=== PATIENT | female | born 1990 | race Caucasian/White ===

== ENCOUNTER → 2018-07-31 12:54 | Outpatient (CLI) | payer OTHER, SELFPAY | PROVIDERS: Family Provider Physician Assistant Medical; PCP Physician Assistant Medical | DX: Z23 Encounter for immunization (principal) | CPT/HCPCS: 90471; 90686 ==

== ENCOUNTER → 2019-08-18 13:23 | Outpatient (CLI) | payer OTHER, SELFPAY | PROVIDERS: PCP Physician Assistant Medical | DX: Z23 Encounter for immunization (principal) | CPT/HCPCS: 90471; 90686 ==

== ENCOUNTER → 2019-12-03 14:48 | Outpatient (CLI) | payer OTHER, SELFPAY ==
--- NOTE | 2019-12-03 14:51 | DI.RAD.S_ITS ---
PROCEDURE: XR LUMBAR SPINE MIN 4V INDICATIONS: lower back pain TECHNIQUE: 5 views of the lumbar spine were acquired. COMPARISON: [facility], , CHEST 2 VIEW, 07/13/2012, 19:30. FINDINGS: Bones: There is transitional anatomy. A comparison chest x-ray demonstrates 11 pairs of ribs. The most superior [id number] lumbar vertebra is referred roderick transitional L1. There is normal bony alignment. No vertebral body compression fractures. There is limbus vertebra at L4. No suspicious bony lesions. Soft tissues: Overlying bowel gas pattern is normal. No suspicious soft tissue calcifications. Oblique images: No pars defects. IMPRESSION: 1. Please note transitional anatomy. 2. No acute osseous abnormalities. Dictated by: Valentina Tyler M.D. on 12/03/2019 at 16:27 Approved by: Valentina Tyler M.D. on 12/03/2019 at 16:31
--- NOTE | 2019-12-03 14:51 | DI.RAD.S_ITS ---
PROCEDURE: XR SACRUM COCCYX MIN 2V INDICATIONS: lower back pain TECHNIQUE: 3 views of the sacrum and coccyx acquired. COMPARISON: None. FINDINGS: Bones: No fractures or dislocations. No suspicious bony lesions. Soft tissues: Visualized bowel gas pattern is normal. No suspicious soft tissue densities. Calcific densities in pelvis are most likely phleboliths. IMPRESSION: No acute osseous abnormalities. Dictated by: Valentina Tyler M.D. on 12/03/2019 at 16:55 Approved by: Valentina Tyler M.D. on 12/03/2019 at 16:56
== END ==
PROVIDERS: PCP Physician Assistant Medical; Visit Provider Physician Assistant
DX: M54.5 Low back pain (principal)
CPT/HCPCS: 72110; 72220

== ENCOUNTER 2019-12-07 14:59 | Outpatient (RCR) | payer OTHER, SELFPAY ==
--- NOTE | 2019-12-07 16:00 | PT.OPPOC ---
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) Low back pain (12/07/19) Visit Care Team Role Provider Type Heather Wiley PA-C Primary Care Provider Non-Staff Specialty: Medical Address: [address] [place] [address] [address], [place], [address] Email: Lisa Cuellar PA-C Attending Provider Advanced Industrial Retrofit Designer Specialty: Medical Address: [address] [place] [address], [id number] Email: [email or web address] Plan Of Care PT-OP-T Assessment and Plan Start: 12/07/19 17:45 Freq: Status: Active Protocol: Document 12/07/19 15:15 DCW (Rec: 12/08/19 11:50 DCW [id number]) Physical Therapy Assessment Rehab Potential Rehabilitation Potential Excellent Evaluation Complexity Number of Personal Factors/Comorbidities 1-2 Number of Body Systems Impaired 3 Clinical Presentation at Evaluation Stable Impairments Impairments Functional Mobility,Pain,ROM, Soft Tissue Mobility,Tone Goals Three Impairment Severe tone through bilateral psoas muscles Property Technician Goal (LTG) Pt to demonstrate mild tone and tenderness to palpation 1/ 4: Complaint of pain along bilateral psoas muscles LTG Duration 02/05/20 Two Impairment Pt limited with functional activities including doing dishes and laundry Correction Goal (LTG) Pt to tolerate standing at sink without the need to bend over to limit pain for the entire required time period. LTG Duration 02/05/20 One Impairment Pt does not have an appropriate home exercise program Short Term Goal (STG) Pt to be independent and compliant with an appropriate HEP STG Duration 01/07/20 Assessment Summary Assessment Pt presents with low back and anterior hip pain. Pt's complaints and physical examination indicate that her hip musculature, specifically her psoas muscles bilaterally, are hypertonic and pulling on their origin point at her lumbar spine, resulting in an anterior tilt of her pelvis and increased lordosis, in a fairly common lower cross syndrome pattern. Pt should benefit from skilled therapy focusing on improving flexibility of her hip flexors and lumbar paraspinals, as well as strengthening of her TrA and hip extensors. Pt is motivated to work on an HEP, and will hopefully get to the point fairly early on where she is independent and can perform her necessary TherEx independently at home. 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 This is unlikely to be causing her current complaints, however may require further work-up if her symptoms do not resolve as expected. Physical Therapy Plan Frequency and Duration Frequency of Treatment 1x/Week Duration of Treatment 2 months Plan of Care Start Date 12/07/19 Plan of Care End Date 02/05/20 Therapeutic Interventions Therapeutic Interventions Aquatic Therapy,Home Exercise Program,Joint Mobilizations, Manual Therapy,Patient/ Caregiver Education,Self-Care/ Home Management,Soft Tissue Mobilization,Therapeutic Activities,Therapeutic Exercises Modalities Cold Pack/Ice Massage,Electric Stimulation,Hot Packs, Ultrasound Next Visit Focus/Plan Next Note Type Treatment Note Next Visit Plan STM to psoas, piriformis, QL, and Paraspinals, Flexibility/ ROM training, strengthening Plan of Care Dates Plan of Care Start Date 12/07/19 Plan of Care End Date 02/05/20 Electronically Signed by: Rajeev Kim, PT 12/08/19 [id number] Please Sign and Return: I have reviewed this Plan of Care and certify that the skilled therapy services above are required to meet the patient?s needs. Physician Signature Date Printed Name and Credentials Clinical Instructor Signature Printed Name and Credentials
--- NOTE | 2019-12-07 16:00 | PT.OIE ---
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) Low back pain (12/07/19) Visit Care Team Role Provider Type Heather Wiley PA-C Primary Care Provider Non-Staff Specialty: Medical Address: [address] [place], [place] [address], [place], [address] Email: Lisa Cuellar PA-C Attending Provider Advanced Robotics Software Engineer Specialty: Medical Address: [address] [place] [address], [id number] Email: [email or web address] Physical Therapy Initial Evaluation PT-OP-A Visit Information Start: 12/07/19 17:45 Freq: Status: Active Protocol: Document 12/07/19 15:15 DCW (Rec: 12/07/19 17:57 DCW [id number]) Out-Patient Physical Therapy Visit Information Visit Information Visit Type Initial Evaluation Visit Start Time 15:15 Visit Stop Time 15:55 Total Visit Minutes 40 Visit Number 1 Number of ENVIRONMENTAL CONTROL ADMINISTRATOR Visits 0 Evaluation Information Evaluation Date 12/07/19 PT-OP-B Current Condition Start: 12/07/19 17:45 Freq: Status: Active Protocol: Document 12/07/19 15:15 DCW (Rec: 12/07/19 17:57 DCW [id number]) Current Condition History of Current Condition Onset Date 1 week Current Complaints low back and anterior hip pain History of Current Condition Pt is a 29 year old female presenting with a multi-year history of low back pain off and on with varying severity. Pt notes she doesn't know when or why it began, but she's just been dealing with it for a few years. Pt notes, however , that last week, her back pain got so bad, she had to go to urgent care. Pt reports that it typically does not last this long, and her pain goes from an average of 5/10 to a high of 8/10, worsening when standing straight up or lying flat on her back with her legs straight. Pt notes that when she is standing, she feels like she needs to lean on something to relieve pressure. Prior Treatments and Tests Lumbar x-ray: There is transitional anatomy. A comparison chest x-ray demonstrates 11 pairs of ribs. The most superior non-rib- bearing lumbar vertebra is referred roderick transitional L1. ..IMPRESSION: 1. Please note transitional anatomy. 2. No acute osseous abnormalities Per: Valentina Tyler M.D. on 2019 Sacral x-ray: IMPRESSION: No acute osseous abnormalities. Per: Valentina Tyler M.D. on 2019 PT-OP-C Subjective Start: 12/07/19 17:45 Freq: Status: Active Protocol: Document 12/07/19 15:15 DCW (Rec: 12/07/19 17:57 DCW [id number]) OP-PT Subjective Patient Comments Patient Comments Pt notes she works through the pain, I'm not going to let this back pain stop me. Pt does note that she has had her boyfriend help more with dishes and laundry. Patient Reported Progress Same OP-PT Pain Assessment Pain Assessment Grid Paper Pain Assessment Grid Completed Yes Location Lower Back Intensity 5 Scale Used Numeric (1 - 10) Radiating Location Occasional aching in anterior hips PT-OP-F Manual Assessment Start: 12/07/19 17:45 Freq: Status: Active Protocol: Document 12/07/19 15:15 DCW (Rec: 12/08/19 08:10 DCW [id number]) Manual Assessments Soft Tissue Assessment Soft Tissue Mobility Assessment Severe tone and Tenderness to Palpation: 3/4 - Wincing and Withdraw bilateral Psoas Moderate tone and Tenderness to Palpation: 2/4 - Pain with wincing bilateral Piriformis, bilateral QL, bilateral lumbar paraspinals Joint Mobility Assessment Joint Mobility Assessment Hypomobility and complaint of pain at L1, L4 with P->A mobilization PT-OP-K Range of Motion Start: 12/07/19 17:45 Freq: Status: Active Protocol: Document 12/07/19 15:15 DCW (Rec: 12/08/19 08:10 DCW [id number]) Lumbar Spine Range of Motion Lumbar Spine Active Degrees Testing Position Standing Flexion 55 Extension 10 Lateral Flexion Left 52 Lateral Flexion Right 47 ROM Limitations Soft Tissue Tightness,Pain Comments Lateral flexion measured in cm from finger tips to floor PT-OP-L Special Tests Start: 12/07/19 17:45 Freq: Status: Active Protocol: Document 12/07/19 15:15 DCW (Rec: 12/08/19 08:15 DCW [id number]) Special Tests Lumbar Spine Special Tests Prone Press Up Test Results Increased pain Straight Leg Raise Test Results Negative Slump Test Results Negative Compression Test Results Negative A-P Shearing Test Results Negative Hip Special Tests Emelina's Test Test Results Positive bilaterally ARGELIA Test Results Negative PT-OP-Q Treatments Start: 12/07/19 17:45 Freq: Status: Active Protocol: Document 12/07/19 15:15 DCW (Rec: 12/08/19 08:15 DCW [id number]) Therapeutic Exercises Supine Exercises 1 Supine Exercise Name Psoas stretch - off table Side bilateral Sitting Exercises 3 Sitting Exercise Name Seated Figure-4 Piriformis Side bilateral Reps/Minutes 30 hold 2 Sitting Exercise Name Lateral trunk flexion Side left Reps/Minutes 10 hold 1 Sitting Exercise Name Seated trunk flexion Reps/Minutes 10 hold PT-OP-T Assessment and Plan Start: 12/07/19 17:45 Freq: Status: Active Protocol: Document 12/07/19 15:15 DCW (Rec: 12/08/19 11:50 DCW [id number]) Physical Therapy Assessment Rehab Potential Rehabilitation Potential Excellent Evaluation Complexity Number of Personal Factors/Comorbidities 1-2 Number of Body Systems Impaired 3 Clinical Presentation at Evaluation Stable Impairments Impairments Functional Mobility,Pain,ROM, Soft Tissue Mobility,Tone Goals Three Impairment Severe tone through bilateral psoas muscles Alf Goal (LTG) Pt to demonstrate mild tone and tenderness to palpation 1/ 4: Complaint of pain along bilateral psoas muscles LTG Duration 02/05/20 Two Impairment Pt limited with functional activities including doing dishes and laundry Alf Goal (LTG) Pt to tolerate standing at sink without the need to bend over to limit pain for the entire required time period. LTG Duration 02/05/20 One Impairment Pt does not have an appropriate home exercise program Short Term Goal (STG) Pt to be independent and compliant with an appropriate HEP STG Duration 01/07/20 Assessment Summary Assessment Pt presents with low back and anterior hip pain. Pt's complaints and physical examination indicate that her hip musculature, specifically her psoas muscles bilaterally, are hypertonic and pulling on their origin point at her lumbar spine, resulting in an anterior tilt of her pelvis and increased lordosis, in a fairly common lower cross syndrome pattern. Pt should benefit from skilled therapy focusing on improving flexibility of her hip flexors and lumbar paraspinals, as well as strengthening of her TrA and hip extensors. Pt is motivated to work on an HEP, and will hopefully get to the point fairly early on where she is independent and can perform her necessary TherEx independently at home. 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 This is unlikely to be causing her current complaints, however may require further work-up if her symptoms do not resolve as expected. Physical Therapy Plan Frequency and Duration Frequency of Treatment 1x/Week Duration of Treatment 2 months Plan of Care Start Date 12/07/19 Plan of Care End Date 02/05/20 Therapeutic Interventions Therapeutic Interventions Aquatic Therapy,Home Exercise Program,Joint Mobilizations, Manual Therapy,Patient/ Caregiver Education,Self-Care/ Home Management,Soft Tissue Mobilization,Therapeutic Activities,Therapeutic Exercises Modalities Cold Pack/Ice Massage,Electric Stimulation,Hot Packs, Ultrasound Next Visit Focus/Plan Next Note Type Treatment Note Next Visit Plan STM to psoas, piriformis, QL, and Paraspinals, Flexibility/ ROM training, strengthening
--- NOTE | 2020-06-03 08:34 | PT.OPDS ---
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) Low back pain (12/07/19) Visit Care Team Role Provider Type Heather Wiley PA-C Primary Care Provider Non-Staff Specialty: Medical Address: [address] [place], [place] [address], [place], [address] Email: Lisa Cuellar PA-C Attending Provider Advanced Fine Arts Packer Specialty: Medical Address: [address] [place] [address], [phone] Email: [email or web address] Visit Number Visit Number 1 Discharge Summary PT-OP-B Current Condition Start: 12/07/19 17:45 Freq: Status: Active Protocol: Document 12/07/19 15:15 DCW (Rec: 12/07/19 17:57 DCW [id number]) Current Condition History of Current Condition Onset Date 1 week Current Complaints low back and anterior hip pain History of Current Condition Pt is a 29 year old female presenting with a multi-year history of low back pain off and on with varying severity. Pt notes she doesn't know when or why it began, but she's just been dealing with it for a few years. Pt notes, however , that last week, her back pain got so bad, she had to go to urgent care. Pt reports that it typically does not last this long, and her pain goes from an average of 5/10 to a high of 8/10, worsening when standing straight up or lying flat on her back with her legs straight. Pt notes that when she is standing, she feels like she needs to lean on something to relieve pressure. Prior Treatments and Tests Lumbar x-ray: There is transitional anatomy. A comparison chest x-ray demonstrates 11 pairs of ribs. The most superior non-rib- bearing lumbar vertebra is referred roderick transitional L1. ..IMPRESSION: 1. Please note transitional anatomy. 2. No acute osseous abnormalities Per: Valentina Tyler M.D. on 2019 Sacral x-ray: IMPRESSION: No acute osseous abnormalities. Per: Valentina Tyler M.D. on 2019 PT-OP-C Subjective Start: 12/07/19 17:45 Freq: Status: Active Protocol: Document 12/07/19 15:15 DCW (Rec: 12/07/19 17:57 DCW [id number]) OP-PT Subjective Patient Comments Patient Comments Pt notes she works through the pain, I'm not going to let this back pain stop me. Pt does note that she has had her boyfriend help more with dishes and laundry. Patient Reported Progress Same OP-PT Pain Assessment Pain Assessment Grid Paper Pain Assessment Grid Completed Yes Location Lower Back Intensity 5 Scale Used Numeric (0 - 10) Radiating Location Occasional aching in anterior hips PT-OP-F Manual Assessment Start: 12/07/19 17:45 Freq: Status: Active Protocol: Document 12/07/19 15:15 DCW (Rec: 12/08/19 08:10 DCW [id number]) Manual Assessments Soft Tissue Assessment Soft Tissue Mobility Assessment Severe tone and Tenderness to Palpation: 3/4 - Wincing and Withdraw bilateral Psoas Moderate tone and Tenderness to Palpation: 2/4 - Pain with wincing bilateral Piriformis, bilateral QL, bilateral lumbar paraspinals Joint Mobility Assessment Joint Mobility Assessment Hypomobility and complaint of pain at L1, L4 with P->A mobilization PT-OP-K Range of Motion Start: 12/07/19 17:45 Freq: Status: Active Protocol: Document 12/07/19 15:15 DCW (Rec: 12/08/19 08:10 DCW [id number]) Lumbar Spine Range of Motion Lumbar Spine Active Degrees Testing Position Standing Flexion 55 Extension 10 Lateral Flexion Left 52 Lateral Flexion Right 47 ROM Limitations Soft Tissue Tightness,Pain Comments Lateral flexion measured in cm from finger tips to floor PT-OP-L Special Tests Start: 12/07/19 17:45 Freq: Status: Active Protocol: Document 12/07/19 15:15 DCW (Rec: 12/08/19 08:15 DCW [id number]) Special Tests Lumbar Spine Special Tests Prone Press Up Test Results Increased pain Straight Leg Raise Test Results Negative Slump Test Results Negative Compression Test Results Negative A-P Shearing Test Results Negative Hip Special Tests Emelina's Test Test Results Positive bilaterally ARGELIA Test Results Negative PT-OP-T Assessment and Plan Start: 12/07/19 17:45 Freq: Status: Active Protocol: Document 06/03/20 08:33 DCW (Rec: 06/03/20 08:34 DCW [id number]) Physical Therapy Assessment Assessment Summary Assessment Pt has not been seen as a patient in five months, and will be discharged from skilled therapy at this time. Physical Therapy Plan Discharge Physical Therapy Discharge Reasons No Longer Attending PT Next Visit Focus/Plan Next Note Type Discharge Summary
== END 2020-06-03 13:03 ==
LOC: PHYS 14:59
PROVIDERS: PCP Physician Assistant Medical; Visit Provider Physician Assistant
DX: M46.96 Unspecified inflammatory spondylopathy, lumbar region (principal); M25.60 Stiffness of unspecified joint, not elsewhere classified; M54.5 Low back pain
CPT/HCPCS: 97110; 97161

== ENCOUNTER 2019-12-19 09:18 | Emergency (ER) | payer OTHER, SELFPAY ==
[2019-12-19 09:22] VITALS: BP 144/68; PULSE 98; RESP 18; TEMP 37.1; O2SAT 96
--- NOTE | 2019-12-19 09:47 | ED.SKABFB ---
HPI - Skin/Abscess/Foreign Bdy General Chief complaint: Skin/Abscess/Foreign Body Stated complaint: red spot rt leg, painful swelling Time Seen by Provider: 12/19/19 09:26 Source: patient Mode of arrival: Ambulatory Limitations: no limitations History of Present Illness HPI narrative: 29-year-old female here for evaluation of redness on the outside of her right lower extremity. She states that last night she felt a little bump there and she scratched it. Some clear fluid returned. Noticed some redness around the area that today. No prior history of abscesses. Has not tried anything for symptoms prior to arrival Related Data Previous Rx's Medication Instructions Recorded cephalexin [Keflex] 500 mg PO QID 5 Days #20 cap 12/19/19 Allergies Allergy/AdvReac Type Severity Reaction Status Date / Time amoxicillin [AMOXICILLIN] Allergy Severe FULL BODY Verified 12/19/19 09:26 RASH Review of Systems Constitutional Constitutional: Denies fever(s) ENT Ears, Nose, Mouth, and Throat: Denies disequilibrium Cardiovascular Cardiovascular: Denies chest pain and Denies dyspnea Respiratory Respiratory: Denies dyspnea Musculoskeletal Musculoskeletal: Denies tingling Integumentary/Breasts Comments: Redness skin right lower extremity Neurologic Neurologic: Denies tingling and Denies disequilibrium Hematologic/Lymphatic Hematologic/Lymphatic: Denies easy bleeding and Denies easy bruising Patient History Medical History Abdominal pain (Inactive) Biliary dyskinesia (Inactive) GERD (gastroesophageal reflux disease) (Inactive) Social History Smoking Status: Never smoker Smoking Status: Never smoker alcohol intake frequency: 0-2 drinks per day Substance Use Type: does not use Exam Initial Vital Signs Initial Vital Signs: Vital Signs Temperature 98.8 F 12/19/19 09:22 Pulse Rate 98 H 12/19/19 09:22 Respiratory Rate 18 12/19/19 09:22 Blood Pressure 144/68 H 12/19/19 09:22 Pulse Oximetry 96 12/19/19 09:22 Const General: cooperative, comfortable and well developed Limitations: mental status not altered Resp Effort & Inspection: normal respiratory effort Auscultation: clear to auscultation bilaterally Cardio Rate: regular rate Skin Other: Patient with a 8 cm round area of redness on the lateral aspect of her right lower extremity mid tibia. No active drainage. No induration. No underlying abscess. Extrem Other: Full range of motion right knee and right ankle Course Vital Signs Vital signs: Vital Signs - 8 hr 12/19/19 09:22 Temperature 98.8 F Pulse Rate 98 H Respiratory Rate 18 Blood Pressure 144/68 H Pulse Oximetry 96 MDM - Skin/Abscess/Foreign Bdy MDM Narrative Medical decision making narrative: Physical exam consistent with cellulitis. No signs of abscess. No indication for incision and drainage. Will send home with a prescription for antibiotics. Patient was given return precautions and follow-up instructions. She expressed understanding and agreement with plan. Discharge Plan Departure Patient Disposition: Home Clinical Impression: Cellulitis Qualifiers: Site of cellulitis: extremity Site of cellulitis of extremity: lower extremity Laterality: right Qualified Code(s): L03.115 - Cellulitis of right lower limb Instructions: DI for Cellulitis -- Adult Activity Restrictions/Additional Instructions: Take the antibiotics as directed. Return to the emergency department for any new or worsening symptoms Prescriptions: New cephalexin [Keflex] 500 mg capsule 500 mg PO QID 5 Days Qty: 20 RF: 0 Referrals: Heather Wiley PA-C [Primary Care Provider] -
== END 2019-12-19 10:10 | disposition home or self-care (01) ==
PROVIDERS: Emergency Provider Emergency Medicine; PCP Physician Assistant Medical
DX: L03.115 Cellulitis of right lower limb (principal)
CPT/HCPCS: 99281; 99283

== ENCOUNTER → 2020-06-10 09:06 | Outpatient (CLI) | payer OTHER, SELFPAY ==
[2020-06-10 13:12] LABS: Amylase 93 U/L (30-110); BUN Creatinine Ratio 20.9 (6-22); Blood Urea Nitrogen 14 mg/dL (7-17); Calcium 9.8 mg/dL (8.4-10.2); Carbon Dioxide 30 mmol/L (22-32); Chloride 102 mmol/L (98-107); Estimated Glomerular Filt Rate > 60.0 mL/min (>60); Glucose 85 mg/dL (70-100); HEMOLYSIS < 15 (0-50); Lipase 55 U/L (23-300); Magnesium 2.1 mg/dL (1.6-2.3); Phosphorous 4.1 mg/dL (2.5-4.5); Potassium 4.3 mmol/L (3.4-5.1); Sodium 137 mmol/L (137-145)
[2020-06-10 13:26] LABS: Free T4, Direct Thyroxine 0.92 ng/dL (0.78-2.19)
[2020-06-10 13:33] LABS: Vitamin D 25 Hydroxy (D3) 61.4 ng/mL (30.0-100.0)
[2020-06-10 13:40] LABS: Thyroid Stimulating Hormone 1.14 uIU/mL (0.47-4.68)
[2020-06-10 13:45] LABS: Ferritin 80 ng/mL (6-137)
== END ==
PROVIDERS: PCP Physician Assistant Medical; Referring Provider Physician Assistant Medical; Visit Provider Physician Assistant Medical
DX: F50.9 Eating disorder, unspecified (principal)
CPT/HCPCS: 36415; 80048; 82150; 82306; 82728; 83690; 83735; 84100; 84439; 84443; 84481

== ENCOUNTER 2020-07-22 06:33 | Emergency (ER) | payer OTHER, SELFPAY ==
[2020-07-22 06:35] VITALS: BP 150/76; PULSE 100; RESP 18; TEMP 37; O2SAT 95
--- NOTE | 2020-07-22 06:59 | ED_ITS ---
HPI - Nausea/Vomiting/Diarrhea <Emerson Lane DO - Last Filed: 07/22/20 22:38> General Chief complaint: Nausea/Vomiting/Diarrhea Stated complaint: vomiting and Diarrhea Time Seen by Provider: 07/22/20 06:33 Source: patient Mode of arrival: Ambulatory Limitations: no limitations History of Present Illness HPI Narrative: 30M non smoker with history of hypertension hyperlipidemia presents with a chief complaint of 4 days of, lists episodes of watery foul- smelling stool. This morning she had some dry heaving but no vomiting. She does feel fatigued and weak but is not significantly dizzy or lightheaded. She denies any runny nose, sore throat or cough. She denies any chest pain or carson rtness of breath. She denies any abdominal pain. She has no dysuria, frequency or urgency. 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 Her has similar symptoms. She denies exposure to bad food, recent antibiotics or travel. MD complaint: nausea and diarrhea Onset (ago): day(s) Description of Diarrhea: watery and mucousy Relieving factors: none Exacerbating factors: none Associated symptoms: denies other symptoms Related Data Previous Rx's Medication Instructions Recorded ondansetron 4 mg PO Q8H PRN #10 tab 07/22/20 Allergies Allergy/AdvReac Type Severity Reaction Status Date / Time amoxicillin [AMOXICILLIN] Allergy Severe FULL BODY Verified 12/19/19 09:26 RASH Review of Systems <DO Shilpi Woods Last Filed: 07/22/20 22:38> Constitutional Constitutional: Denies chills, Denies fatigue, Denies fever(s), Denies frequent falls, Denies lethargy and Denies weakness Eyes Eyes: Denies change in vision, Denies eye discharge, Denies irritation and Denies loss of vision ENT Ears, Nose, Mouth, and Throat: Denies change in voice, Denies dizziness, Denies neck pain, Denies sore throat and Denies throat swelling Cardiovascular Cardiovascular: Denies chest pain, Denies irregular heart rhythm, Denies lightheadedness, Denies palpitations, Denies dyspnea, Denies dyspnea on exertion and Denies orthopnea Respiratory Respiratory: Denies cough, Denies dyspnea, Denies dyspnea on exertion and Denies wheezing Gastrointestinal Gastrointestinal: Denies abdominal pain, Denies change in bowel habits, Reports diarrhea, Reports nausea and Denies vomiting Musculoskeletal Musculoskeletal: Denies neck pain and Denies numbness Integumentary/Breasts Skin/Breast: Denies pruritus, Denies erythema, Denies rash and Denies wounds Neurologic Neurologic: Denies behavioral changes, Denies confusion, Denies dizziness, Denies frequent falls, Denies loss of vision, Denies numbness and Denies weakness Psychiatric Psychiatric: Denies anxiety, Denies behavioral changes, Denies confusion, Denies depression, Denies homicidal ideation and Denies suicidal ideation Endocrine Endocrine: Denies fatigue, Denies flushing and Denies palpitations Hematologic/Lymphatic Hematologic/Lymphatic: Denies easy bruising Allergic/Immunologic Allergic/Immunologic: Denies urticaria, Denies throat swelling and Denies wheezing Patient History <Emerson Lane DO - Last Filed: 07/22/20 22:38> Medical History Abdominal pain (Inactive) Biliary dyskinesia (Inactive) GERD (gastroesophageal reflux disease) (Inactive) Social History Smoking Status: Never smoker Smoking Status: Never smoker alcohol intake frequency: 0-2 drinks per day Substance Use Type: does not use Exam <Emerson Lane DO - Last Filed: 07/22/20 22:38> Narrative Exam Narrative: GENERAL: [30] year old patient appears stated age. Well- nourished, well-developed patient, in mild distress. HEAD: Atraumatic. Normocephalic. EYES: Pupils equal round and reactive. Extraocular motions intact. No scleral icterus. No injection or drainage. ENT: Nose without bleeding, purulent drainage. Throat without erythema, tonsillar hypertrophy or exudate. Airway patent. NECK: Trachea midline. Non tender CARDIOVASCULAR: Regular rate and rhythm without murmurs, gallops, or rubs. RESPIRATORY: Clear to auscultation. Breath sounds equal bilaterally. No wheezes, rales, or rhonchi. GASTROINTESTINAL: Abdomen soft, non-tender, nondistended. EXTREMITIES: No edema or joint tenderness. BACK: Nontender without deformity or crepitance. No flank tenderness. NEURO: AOx3. SKIN: No rash or erythema of visible areas Initial Vital Signs Initial Vital Signs: Vital Signs Temperature 98.6 F 07/22/20 06:35 Pulse Rate 100 H 07/22/20 06:35 Respiratory Rate 18 07/22/20 06:35 Blood Pressure 150/76 H 07/22/20 06:35 Pulse Oximetry 95 07/22/20 06:35 <Kimberly Cast DO - Last Filed: 07/22/20 09:33> Initial Vital Signs Initial Vital Signs: Vital Signs Temperature 98.6 F 07/22/20 06:35 Pulse Rate 100 H 07/22/20 06:35 Respiratory Rate 18 07/22/20 06:35 Blood Pressure 150/76 H 07/22/20 06:35 Pulse Oximetry 95 07/22/20 06:35 Course <Emerson Lane DO - Last Filed: 07/22/20 22:38> Orders Ordered: Discontinued Medications Sodium Chloride (Normal Saline 0.9%) 1,000 mls @ 1,000 mls/hr IV BOLUS ONE Stop: 07/22/20 07:38 Last Infusion: 07/22/20 08:49 Dose: 0 mls/hr Documented by: Admin: 07/22/20 07:08 Dose: 1,000 mls/hr Documented by: MACKENZIE Vital Signs Vital signs: Vital Signs - 8 hr 07/22/20 06:35 07/22/20 07:35 07/22/20 08:50 Temperature 98.6 F Pulse Rate 100 H 87 81 Respiratory Rate 18 17 16 Blood Pressure 150/76 H 135/72 128/74 Pulse Oximetry 95 98 97 <Kimberly Cast DO - Last Filed: 07/22/20 09:33> Orders Ordered: Discontinued Medications Sodium Chloride (Normal Saline 0.9%) 1,000 mls @ 1,000 mls/hr IV BOLUS ONE Stop: 07/22/20 07:38 Last Infusion: 07/22/20 08:49 Dose: 0 mls/hr Documented by: Admin: 07/22/20 07:08 Dose: 1,000 mls/hr Documented by: DIOGENESN Vital Signs Vital signs: Vital Signs - 8 hr 07/22/20 06:35 07/22/20 07:35 07/22/20 08:50 Temperature 98.6 F Pulse Rate 100 H 87 81 Respiratory Rate 18 17 16 Blood Pressure 150/76 H 135/72 128/74 Pulse Oximetry 95 98 97 MDM - Nausea/Vomiting/Diarrhea <Emerson Lane DO - Last Filed: 07/22/20 22:38> Lab Data Result diagrams: 07/22/20 07:05 07/22/20 07:05 Labs: Lab Results 07/22/20 07/22/20 07/22/20 Range/Units 07:05 07:05 07:23 WBC 9.4 (4.5-11.0) X10^3/uL RBC 4.45 (4.0-5.2) X10^6/uL Hgb 12.9 (12.0-16.0) g/dL Hct 38.5 (36-46) % MCV 86.6 (80-100) fL MCH 29.0 (26-34) PG MCHC 33.5 (30-36) % RDW 13.3 (11.6-14.8) % Plt Count 358 (150-400) X10^3/uL Neut % (Auto) 80.3 H (50-75) % Lymph % (Auto) 14.2 L (25-40) % Dillon % (Auto) 4.7 (3-14) % Eos % (Auto) 0.5 L (2-4) % Baso % (Auto) 0.3 (0-2) % Neut # (Auto) 7600 H (8104-8214) /uL Lymph # (Auto) 1300 (1327-4067) /uL Dillon # (Auto) 400 (0-900) /uL Eos # (Auto) 0 (0-450) /uL Baso # (Auto) 0 (0-100) /uL Sodium 140 (137-145) mmol/L Potassium 4.0 (3.4-5.1) mmol/L Chloride 106 (98-107) mmol/L Carbon Dioxide 25 (22-32) mmol/L BUN 9 (7-17) mg/dL Creatinine 0.64 (0.52-1.04) mg/dL Estimated GFR > 60.0 (>60) mL/min BUN/Creatinine Ratio 14.1 (6-22) Glucose 114 H (70-100) mg/dL Calcium 9.4 (8.4-10.2) mg/dL Total Bilirubin 0.3 (0.2-1.3) mg/dL AST 35 (14-36) IU/L ALT 36 H (<35) IU/L Alkaline Phosphatase 82 (38-126) U/L Total Protein 8.0 (6.3-8.2) g/dL Albumin 4.0 (3.5-5.0) g/dL Globulin 4.0 (1.7-4.1) g/dL Albumin/Globulin Ratio 1.0 (1.0-2.8) Urine RBC 30-100/hpf H (0-5/HPF) Urine WBC 0-1/hpf (0-5/HPF) Ur Squamous Epith Cells 1-5 /hpf (0-5/HPF) Urine Bacteria Few (2-10) H (None) Ur Culture Indicated? Specimen cultured Point of Care Testing Test Results Negative Urine Dip Bedside Urine Glucose Negative Bedside Urine Bilirubin - Negative Bedside Urine Ketone - Negative Urine Specific Brilliant 1.015 Bedside Urine Occult Blood +++ Bedside Urine pH 6.0 Bedside Urine Protein +/- 15 Bedside Urine Urobilinogen - Negative Bedside Urine Nitrite - Negative Bedside Urine Leukocytes - Negative Esterase <Kimberly Cast, DO - Last Filed: 07/22/20 09:33> Lab Data Attestation: I reviewed the patient's lab results. Labs: Lab Results 07/22/20 07/22/20 07/22/20 Range/Units 07:05 07:05 07:23 WBC 9.4 (4.5-11.0) X10^3/uL RBC 4.45 (4.0-5.2) X10^6/uL Hgb 12.9 (12.0-16.0) g/dL Hct 38.5 (36-46) % MCV 86.6 (80-100) fL MCH 29.0 (26-34) PG MCHC 33.5 (30-36) % RDW 13.3 (11.6-14.8) % Plt Count 358 (150-400) X10^3/uL Neut % (Auto) 80.3 H (50-75) % Lymph % (Auto) 14.2 L (25-40) % Dillon % (Auto) 4.7 (3-14) % Eos % (Auto) 0.5 L (2-4) % Baso % (Auto) 0.3 (0-2) % Neut # (Auto) 7600 H (7399-5635) /uL Lymph # (Auto) 1300 (3358-1697) /uL Dillon # (Auto) 400 (0-900) /uL Eos # (Auto) 0 (0-450) /uL Baso # (Auto) 0 (0-100) /uL Sodium 140 (137-145) mmol/L Potassium 4.0 (3.4-5.1) mmol/L Chloride 106 (98-107) mmol/L Carbon Dioxide 25 (22-32) mmol/L BUN 9 (7-17) mg/dL Creatinine 0.64 (0.52-1.04) mg/dL Estimated GFR > 60.0 (>60) mL/min BUN/Creatinine Ratio 14.1 (6-22) Glucose 114 H (70-100) mg/dL Calcium 9.4 (8.4-10.2) mg/dL Total Bilirubin 0.3 (0.2-1.3) mg/dL AST 35 (14-36) IU/L ALT 36 H (<35) IU/L Alkaline Phosphatase 82 (38-126) U/L Total Protein 8.0 (6.3-8.2) g/dL Albumin 4.0 (3.5-5.0) g/dL Globulin 4.0 (1.7-4.1) g/dL Albumin/Globulin Ratio 1.0 (1.0-2.8) Urine RBC 30-100/hpf H (0-5/HPF) Urine WBC 0-1/hpf (0-5/HPF) Ur Squamous Epith Cells 1-5 /hpf (0-5/HPF) Urine Bacteria Few (2-10) H (None) Ur Culture Indicated? Specimen cultured Point of Care Testing Test Results Negative Urine Dip Bedside Urine Glucose Negative Bedside Urine Bilirubin - Negative Bedside Urine Ketone - Negative Urine Specific Brilliant 1.015 Bedside Urine Occult Blood +++ Bedside Urine pH 6.0 Bedside Urine Protein +/- 15 Bedside Urine Urobilinogen - Negative Bedside Urine Nitrite - Negative Bedside Urine Leukocytes - Negative Esterase MDM Narrative Medical decision making narrative: Patient signed out to me by Dr. Lane. I have seen evaluated patient myself. She did give a stool sample although it was slightly have formed so C diff was not run. She is overall feeling better. Unfortunately COVID-19 test could not be run stat due to not enough testing. It will be a send out. I have discussed with her to self quarantine until results. I have also provided education on oral rehydration techniques given her prescription for Zofran. Discharge Plan Departure Patient Disposition: Home Clinical Impression: Gastroenteritis Discharge Date/Time: 07/22/20 08:51 Instructions: DI for Viral Gastroenteritis -- Adult Activity Restrictions/Additional Instructions: *You have been diagnosed with gastroenteritis *What to do: Increase fluid intake as tolerated recommend something like Gatorade with sugar and electrolytes to keep You hydrated. Small sips frequently. You have been tested for COVID-19 however this result is a send out and can take 2-3 days to come back we will call you with results. Until results please self quarantine. You may also require an outpatient stool sample, please discuss this with your primary care provider *Continue to take medications as directed Zofran 4 mg every 8 hours as needed for nausea vomiting *Follow up with your primary care provider in 2-3 days *Return to ER if you should have persistent diarrhea, inability to tolerate fluids, fever, increased abdominal pain or any new, worsening or concerning symptoms Prescriptions: New ondansetron 4 mg tablet,disintegrating 4 mg PO Q8H PRN (Reason: nausea and vomiting) Qty: 10 RF: 0 Referrals: Heather Wiley PA-C [Primary Care Provider] - ED Sign-out <Emerson Lane DO - Last Filed: 07/22/20 22:38> [facility] ED Attending Brijesh Attestation: I was immediately available in the department for consultation. This documentation has been reviewed and I agree with assessment and plan. Supervised by Emerson Lane DO
[2020-07-22] MEDS: SODIUM CHLORIDE 0.9% 1,000 ML 1000 ML IV (07:08)
[2020-07-22 07:10] LABS: Add Manual Diff / Slide Review NO; Basophils Absolute Auto 0 /uL (0-100); Basophils Percent Auto 0.3 % (0-2); Eosinophils Absolute Auto 0 /uL (0-450); Eosinophils Percent Auto 0.5 % (2-4); Hematocrit 38.5 % (36-46); Hemoglobin 12.9 g/dL (12.0-16.0); Lymphocytes Absolute Auto 1300 /uL (1100-4500); Lymphocytes Percent Auto 14.2 % (25-40); Mean Corpuscular HGB Conc 33.5 % (30-36); Mean Corpuscular Volume 86.6 fL (80-100); Monocytes Absolute Auto 400 /uL (0-900); Monocytes Percent Auto 4.7 % (3-14); Neutrophils Absolute Auto 7600 /uL (1500-7000); Neutrophils Percent Auto 80.3 % (50-75); Platelet Count 358 X10^3/uL (150-400); Red Blood Cell Count 4.45 X10^6/uL (4.0-5.2); Red Cell Distribution Width 13.3 % (11.6-14.8); White Blood Cell Count 9.4 X10^3/uL (4.5-11.0)
[2020-07-22 07:23] LABS: Alanine Aminotransferase 36 IU/L (<35); Alkaline Phosphatase 82 U/L (38-126); Aspartate Aminotransferase 35 IU/L (14-36); BUN Creatinine Ratio 14.1 (6-22); Bilirubin Total 0.3 mg/dL (0.2-1.3); Blood Urea Nitrogen 9 mg/dL (7-17); Calcium 9.4 mg/dL (8.4-10.2); Carbon Dioxide 25 mmol/L (22-32); Chloride 106 mmol/L (98-107); Estimated Glomerular Filt Rate > 60.0 mL/min (>60); Glucose 114 mg/dL (70-100); HEMOLYSIS 21 (0-50); Sodium 140 mmol/L (137-145)
[2020-07-22 07:35] VITALS: BP 135/72; PULSE 87; RESP 17; O2SAT 98
[2020-07-22 08:20] LABS: Bacteria Urine Few (2-10); RBC Urine 30-100/HPF (0-5/HPF); Squamous Epithelial Cell Urine 1-5 /HPF (0-5/HPF); WBC Urine 0-1/HPF (0-5/HPF)
[2020-07-22 08:21] LABS: Culture Indicated Urine Specimen Cultured
[2020-07-22 08:50] VITALS: BP 128/74; PULSE 81; RESP 16; O2SAT 97
[2020-07-25 16:37] LABS: COVID19 Sendout Not Detected (Not Detect)
== END 2020-07-22 08:51 | disposition home or self-care (01) ==
PROVIDERS: Emergency Medicine; Emergency Provider Emergency Medicine; PCP Physician Assistant Medical
DX: K52.9 Noninfective gastroenteritis and colitis, unspecified (principal); R11.0 Nausea
CPT/HCPCS: 36415; 80053; 81003; 81015; 81025; 85025; 87045; 87077; 87086; 87147; 87186; 87635; 87899; 96360; 96361; 99284

== ENCOUNTER → 2020-08-18 | Outpatient (CLI) | payer OTHER, SELFPAY | PROVIDERS: PCP Physician Assistant Medical; Referring Provider Internal Medicine; Visit Provider Internal Medicine | DX: Z23 Encounter for immunization (principal) | CPT/HCPCS: 90471; 90686 ==

== ENCOUNTER → 2020-11-24 12:01 | Outpatient (CLI) | payer OTHER, SELFPAY ==
[2020-11-24] MEDS: COVID-19 VACC(MODERNA-1)/PF 100 MCG/0.5 ML VIAL IM (12:11)
== END ==
PROVIDERS: PCP Physician Assistant Medical; Visit Provider Internal Medicine
DX: Z23 Encounter for immunization (principal)
CPT/HCPCS: 0011A; 91301

== ENCOUNTER → 2020-11-29 13:34 | Outpatient (CLI) | payer OTHER, SELFPAY ==
--- NOTE | 2020-11-29 13:50 | DI.RAD.S_ITS ---
PROCEDURE: XR CHEST 2V INDICATIONS: SOB, palpitations, LE nonpitting edema TECHNIQUE: 2 views of the chest were acquired. COMPARISON: [facility], , CHEST 2 VIEW, 07/13/2012, 19:30. FINDINGS: Surgical changes and devices: None. Lungs and pleura: Lungs are clear. No pleural effusions or pneumothorax. Mediastinum: Mediastinal contours are normal. Heart size is normal. Bones and chest wall: No suspicious bony abnormalities. Soft tissues appear unremarkable. IMPRESSION: No acute cardiopulmonary disease process. Dictated by: Candi Magana MD, PhD on 11/29/2020 at 14:25 Approved by: Candi Magana MD, PhD on 11/29/2020 at 14:27
[2020-11-29 13:55] LABS: COVID19 -Nasal RAPID Negative (Negative)
[2020-11-29 15:10] LABS: Hematocrit 36.2 % (36-46); Hemoglobin 11.7 g/dL (12.0-16.0); Mean Corpuscular HGB Conc 32.4 % (30-36); Mean Corpuscular Hemoglobin 27.9 PG (26-34); Mean Corpuscular Volume 86.2 fL (80-100); Platelet Count 420 X10^3/uL (150-400); Red Blood Cell Count 4.19 X10^6/uL (4.0-5.2); White Blood Cell Count 10.5 X10^3/uL (4.5-11.0)
[2020-11-29 15:26] LABS: D Dimer 360 ng/mL (<230)
[2020-11-29 15:27] LABS: Alanine Aminotransferase 35 IU/L (<35); Albumin 4.4 g/dL (3.5-5.0); Albumin Globulin Ratio 1.1 (1.0-2.8); Alkaline Phosphatase 95 U/L (38-126); Aspartate Aminotransferase 40 IU/L (14-36); Bilirubin Total 0.2 mg/dL (0.2-1.3); Blood Urea Nitrogen 11 mg/dL (7-17); Calcium 9.6 mg/dL (8.4-10.2); Carbon Dioxide 28 mmol/L (22-32); Chloride 104 mmol/L (98-107); Creatine Kinase 147 U/L (30-135); Estimated Glomerular Filt Rate > 60.0 mL/min (>60); Globulin 3.9 g/dL (1.7-4.1); Glucose 87 mg/dL (70-100); HEMOLYSIS 18 (0-50); Potassium 3.9 mmol/L (3.4-5.1); Sodium 138 mmol/L (137-145); Total Protein 8.3 g/dL (6.3-8.2)
[2020-11-29 15:38] LABS: NT-proBNP (BNP-Adult 18+) 64 pg/mL (<125); Troponin I < 0.012 ng/mL (0.01-0.034)
[2020-11-29 15:42] LABS: CKMB % Relative Index 0.5 % (1.5-5.0); Creatine Kinase MB 0.71 ng/mL (<2.37)
[2020-11-29 15:47] LABS: Neutrophils Absolute Manual 7140 /uL (3000-5900); Total Cells Counted 100
[2020-11-29 15:48] LABS: Anisocytosis 1+; Smudge Cells 2+
[2020-11-29 16:02] LABS: TSH w/ Reflex to FT4 1.25 uIU/mL (0.47-4.68)
== END ==
PROVIDERS: PCP Physician Assistant Medical; Referring Provider Physician Assistant; Visit Provider Physician Assistant
DX: Z20.822 Contact with and (suspected) exposure to COVID-19 (principal); R06.02 Shortness of breath; M79.89 Other specified soft tissue disorders; R00.2 Palpitations; M54.40 Lumbago with sciatica, unspecified side
CPT/HCPCS: 36415; 71046; 80053; 82550; 82553; 83880; 84443; 84484; 85025; 85379; 87635

== ENCOUNTER → 2020-12-20 14:53 | Outpatient (CLI) | payer OTHER, SELFPAY ==
[2020-12-20] MEDS: COVID-19 VACC #2, MRNA(MOD) 100 MCG/0.5 ML VIAL IM (15:21)
== END ==
PROVIDERS: PCP Physician Assistant Medical; Visit Provider Internal Medicine
DX: Z23 Encounter for immunization (principal)
CPT/HCPCS: 0012A; 91301

== ENCOUNTER → 2020-12-26 13:24 | Outpatient (CLI) | payer OTHER, SELFPAY ==
--- NOTE | 2020-12-26 | DI.CT.S_ITS ---
PROCEDURE: CT SINUS SCREEN WO CON INDICATIONS: Postnasal drip TECHNIQUE: Noncontrast 3.0 mm axial images acquired from the frontal sinuses to the mid-sella, with coronal and sagittal reformats. For radiation dose reduction, the following was used: automated exposure control, adjustment of mA and/or kV according to patient size. COMPARISON: None. FINDINGS: Image quality: Excellent. Maxillary Sinuses: Small mucous retention cyst in the inferior left maxillary sinus. Maxillary sinuses otherwise clear. No bony remodeling or destruction. Ethmoid Air Cells: No bony remodeling or destruction. Sinuses are clear. Sphenoid Sinuses: No bony remodeling or destruction. Sinuses are clear. Frontal Sinuses: No bony remodeling or destruction. Sinuses are clear. Ostiomeatal Complexes: Ostiomeatal complexes are patent. No Madina cells. Miscellaneous: Visualized intra-orbital contents are normal. No annie bullosa or paradoxical turbinate curvature. Marked deviation of the nasal septum to the left with a large spur which produces a mucosal contact point (best seen on coronal images 19-24). IMPRESSION: No findings of acute or chronic sinusitis. Marked deviation of the nasal septum to the left with large spur producing a significant mucosal contact point. Dictated by: Florentino Moroe M.D. on 12/26/2020 at 12:46 Approved by: Florentino Moore M.D. on 12/26/2020 at 12:49
== END ==
PROVIDERS: PCP Physician Assistant Medical; Referring Provider Otolaryngology; Visit Provider Otolaryngology
DX: J32.4 Chronic pansinusitis (principal); J34.89 Other specified disorders of nose and nasal sinuses; R09.82 Postnasal drip; R51.9 Headache, unspecified; J34.2 Deviated nasal septum
CPT/HCPCS: 70486

== ENCOUNTER → 2021-02-07 07:00 | Outpatient (CLI) | payer OTHER, SELFPAY ==
[2021-02-07 09:09] LABS: Cholesterol 197 mg/dL (140-199); HDL Cholesterol 47 mg/dL (40-60); LDL Cholesterol Calculated 124 mg/dL (<100); Magnesium 1.9 mg/dL (1.6-2.3); Triglycerides 128 mg/dL (35-150)
== END ==
PROVIDERS: PCP Physician Assistant Medical; Referring Provider Internal Medicine Cardiovascular Disease; Visit Provider Internal Medicine Cardiovascular Disease
DX: R00.2 Palpitations (principal); E78.5 Hyperlipidemia, unspecified
CPT/HCPCS: 36415; 80061; 83735

== ENCOUNTER → 2021-02-23 07:36 | Outpatient (CLI) | payer OTHER, SELFPAY ==
[2021-02-23 12:05] LABS: COVID19 -Nasal RAPID Negative (Negative)
== END ==
PROVIDERS: PCP Physician Assistant Medical; Referring Provider Internal Medicine; Visit Provider Internal Medicine
DX: Z20.822 Contact with and (suspected) exposure to COVID-19 (principal)
CPT/HCPCS: 87635; C9803

== ENCOUNTER → 2021-02-23 07:38 | Outpatient (CLI) | payer OTHER, SELFPAY ==
--- NOTE | 2021-02-23 | DI.US.S_ITS ---
PROCEDURE: US PERIPH VENOUS LOW EXTREM BI INDICATIONS: SHORTNESS OF BREATH. LEG SWELLING. ELEVATED D-DIMER. TECHNIQUE: Real-time imaging, as well as color and pulse Doppler interrogation, were performed of the deep veins of both legs from the inguinal ligament to the popliteal fossa. COMPARISON: None. FINDINGS: Right: The common femoral, femoral and popliteal veins are normally compressible, and free of intraluminal thrombus. Color and pulse Doppler demonstrate normal phasic intravascular flow. There is normal augmentation response to distal compression maneuver. Left: The common femoral, femoral and popliteal veins are normally compressible, and free of intraluminal thrombus. Color and pulse Doppler demonstrate normal phasic intravascular flow. There is normal augmentation response to distal compression maneuver. IMPRESSION: Negative for deep venous thrombosis. Dictated by: Asif Nunez M.D. on 02/23/2021 at 8:30 Approved by: Asif Nunez M.D. on 02/23/2021 at 8:30
== END ==
PROVIDERS: PCP Physician Assistant Medical; Referring Provider Physician Assistant Medical; Visit Provider Physician Assistant Medical
DX: R06.02 Shortness of breath (principal)
CPT/HCPCS: 93970

== ENCOUNTER → 2021-02-24 06:49 | Outpatient (CLI) | payer OTHER, SELFPAY ==
--- NOTE | 2021-03-01 11:26 | PM.PFT.1 ---
Pulmonary Function Test Referral & Results Date Patient Seen: 02/24/21 Requesting provider: Mino Singh Indication: Shortness breath Results: The spirometry demonstrates an FVC of 3.87 L which is 99% of predicted. The FEV1 was measured at 3.35 L which is 103% of predicted. The FEV1/FVC ratio was 87 which is 103% of predicted. Following the administration of bronchodilator there was a 15% improvement in FEF 25-75%. Lung volumes show an SVC of 3.97 L which is 106% of predicted. The diffusing capacity was measured at 26.27 which is 102% of predicted. The maximum voluntary ventilation was normal Interpretation: This study demonstrates normal pulmonary function
== END ==
PROVIDERS: PCP Physician Assistant Medical; Referring Provider Internal Medicine Cardiovascular Disease; Visit Provider Internal Medicine Cardiovascular Disease
DX: R06.02 Shortness of breath (principal)
CPT/HCPCS: 94060; 94726; 94729

== ENCOUNTER → 2021-02-25 09:45 | Outpatient (CLI) | payer OTHER, SELFPAY ==
[2021-02-25 11:14] LABS: COVID19 -Nasal RAPID Negative (Negative)
== END ==
PROVIDERS: PCP Physician Assistant Medical; Visit Provider Physician Assistant
DX: Z20.822 Contact with and (suspected) exposure to COVID-19 (principal)
CPT/HCPCS: 87635

== ENCOUNTER → 2021-02-27 15:09 | Outpatient (CLI) | payer OTHER, SELFPAY ==
--- NOTE | 2021-02-27 16:02 | PM.TREADMILL ---
Cardiac Stress Test Report Referral & Results Date Patient Seen: 02/27/21 Time Patient Seen: 16:02 Requesting provider: Mino Singh Indication: rbbb Rest ECG: sinus rhythm, rbbb Procedure Note: Standard Walter protocol, 6:18, 6.4 METS Reduced exercise capacity, ANJEL +27% Normal hemodynamic response to exercise No chest pain or anginal symptoms No significant ST changes at peak exercise, no ectopy Impression: Normal exercise stress test Please note: Actual ECG tracings can be found in the PACS system.
--- NOTE | 2021-02-27 19:30 | DI.NM.S_ITS ---
DATE OF SERVICE: 02/27/2021 PROCEDURE PERFORMED: Exercise treadmill stress test without imaging. ORDERING PROVIDER: Dr. Mino Singh. INDICATIONS: The patient is a 30-year-old morbidly obese female with sleep apnea and exertional dyspnea. FINDINGS: 1. The patient was able to exercise for 6 minutes 18 seconds on a standard Walter protocol suggesting moderately impaired exercise capacity with an ANJEL of +27%, achieving 6.4 METs. 2. She had a normal heart rate and blood pressure response to exercise, achieving a maximum heart rate of 178 BPM (95% of her predicted maximum). 3. She had no chest discomfort or anginal pain. 4. Her resting ECG shows sinus rhythm with a RBBB with associated ST-segment abnormalities. There are no significant ST-segment shifts or arrhythmias with exercise. IMPRESSION: 1. Normal exercise treadmill study with no ECG evidence for myocardial ischemia. 2. Moderately reduced exercise capacity without angina. Ssuy Reyes - RACH/corinne/kayla doc#: [id number]/job#: [id number] dd: 02/27/2021 17:15:00 dt: 02/27/2021 18:41:00 DICTATING MD/COPIES TO: Jairo Castaneda MD; Mino Singh MD COPIES MNE: CAROL;
== END ==
PROVIDERS: PCP Physician Assistant Medical; Referring Provider Internal Medicine Cardiovascular Disease; Visit Provider Internal Medicine Cardiovascular Disease
DX: I45.10 Unspecified right bundle-branch block (principal); R00.2 Palpitations; R06.02 Shortness of breath; E66.01 Morbid (severe) obesity due to excess calories; G47.30 Sleep apnea, unspecified; R06.09 Other forms of dyspnea
CPT/HCPCS: 93016; 93017

== ENCOUNTER → 2021-03-02 14:43 | Outpatient (CLI) | payer OTHER, SELFPAY ==
--- NOTE | 2021-03-02 | DI.ECHO.S_ITS ---
[facility]---------+ [facility] +---------+ : : [address] : : : : [id number] : : : : Phone: [phone] Echocardiogram Report + + :Name: LIN KENNEY Study Date: 03/02/2021 Height: 65 in : :[facility] : Weight: 300 lb : : Gender: Female BSA: 2.4 m2 : :: 1990 Age: 30 yrs BP: 135/83 mmHg: :Reason For Study: RBBB : :Ordering Physician: Chula : :Jewel Olsen Performed By: Emil Trevizo : :Referring: CHULA OLSEN : + + Interpretation Summary The left ventricle is normal in size and wall thickness. The ejection fraction is estimated to be 65-70%. There is no echo evidence for significant left ventricular outflow tract obstruction. The right ventricle is normal in size and function. No significant valvular pathology seen. The IVC is of normal diameter and collapses greater than 50% with a sniff. This suggests a low right atrial pressure of 3 mm Hg. Procedure: A two-dimensional transthoracic echocardiogram with color flow and Doppler was performed. The study quality was technically adequate. There is no prior echocardiogram noted for this patient. A contrast injection of Definity was performed to improve assessment of LV function. The patient was in sinus rhythm with heart rates between 85-97 bpm during the exam. Left Ventricle: The left ventricle is normal in size and wall thickness. There is no echo evidence for significant left ventricular outflow tract obstruction. There is no thrombus. The ejection fraction is estimated to be 65-70%. There are no focal wall motion abnormalities. Diastolic parameters suggest probable normal left ventricular diastolic function and normal filling pressures. Right Ventricle: The right ventricle is normal in size and function. Atria: Both atria are normal in size. There is no Doppler evidence for an interatrial shunt. Mitral Valve: The mitral valve is normal in structure and function. There is trace mitral regurgitation. Aortic Valve: The aortic valve is normal in structure and function. No aortic regurgitation is present. Tricuspid Valve: The tricuspid valve is normal in structure and function. There is trace tricuspid regurgitation. The right ventricular systolic pressure is estimated to be at least 26 mmHg based on an estimated right atrial pressure of 3 mm Hg. Pulmonic Valve: The pulmonic valve is not well seen, but is grossly normal. There is no pulmonic valvular regurgitation. Great Vessels: The aortic root is normal size. The dimensions of the ascending aorta are normal. The IVC is of normal diameter and collapses greater than 50% with a sniff. This suggests a low right atrial pressure of 3 mm Hg. Pericardium/ Pleura There is no pericardial effusion. There is no pleural effusion. MMode/2D Measurements & Calculations LVIDd: 5.4 cm LVOT diam: 2.0 cm LVIDs: 3.3 cm Ao root diam: 2.7 cm FS: 38.8 % asc Aorta Diam: 2.7 cm IVSd: 0.89 cm LVPWd: 0.76 cm LV cooley. diameter/BSA (cm/m^2): 2.3 LV sys. diameter/BSA (cm/m^2): 1.4 LA A2 area: 18.1 cm2 RA long axis: 4.1 cm LA A4 area: 19.4 cm2 RA area: 10.8 cm2 LA length (vol): 5.4 cm RA vol: 23.9 ml LA vol: 55.6 ml RA : 10.2 ml/m2 LA vol index: 23.7 ml/m2 RVD1 (basal): 3.2 cm TAPSE: 2.9 cm Doppler Measurements & Calculations Ao V2 max: 184.6 cm/sec LVOT Max Milton: 123.7 cm/sec Ao V2 mean: 126.3 cm/sec LV V1 max P.1 mmHg Ao max P.6 mmHg LV V1 VTI: 24.9 cm Ao mean P.2 mmHg MARCIAL(I,D): 2.2 cm2 Ao V2 VTI: 34.1 cm MARCIAL(V,D): 2.1 cm2 sev ratio: 0.73 MARCIAL indexed to BSA (cm^2/m^2): 0.95 MV E max milton: 100.7 cm/sec TR max milton: 240.6 cm/sec MV A max milton: 67.2 cm/sec TR max P.2 mmHg MV E/A: 1.5 PA V2 max: 134.0 cm/sec Med Peak E' Milton: 9.3 cm/sec PA V2 mean: 91.3 cm/sec E/E' med: 10.9 PA mean P.9 mmHg Lat Peak E' Milton: 16.0 cm/sec PA pr(Accel): 22.9 mmHg E/E' lat: 6.3 E/e' average: 8.6 MV dec time: 0.17 sec SV(LVOT): 76.2 ml Reading Physician:12:34 PM
== END ==
PROVIDERS: PCP Physician Assistant Medical; Referring Provider Internal Medicine Cardiovascular Disease; Visit Provider Internal Medicine Cardiovascular Disease
DX: I45.10 Unspecified right bundle-branch block (principal); R00.2 Palpitations; R06.02 Shortness of breath
CPT/HCPCS: C8929; Q9957

== ENCOUNTER → 2021-07-21 11:51 | Outpatient (CLI) | payer OTHER, SELFPAY ==
[2021-07-21 12:37] LABS: COVID19 -Nasal RAPID Negative (Negative)
== END ==
PROVIDERS: PCP Physician Assistant Medical; Referring Provider Nurse Practitioner; Visit Provider Nurse Practitioner
DX: R09.89 Other specified symptoms and signs involving the circulatory and respiratory systems (principal); Z20.822 Contact with and (suspected) exposure to COVID-19; R53.83 Other fatigue
CPT/HCPCS: 87635

== ENCOUNTER → 2021-09-14 09:00 | Outpatient (CLI) | payer OTHER, SELFPAY | PROVIDERS: PCP Physician Assistant Medical; Referring Provider Internal Medicine; Visit Provider Internal Medicine | DX: Z23 Encounter for immunization (principal) | CPT/HCPCS: 90471; 90686 ==

== ENCOUNTER → 2021-09-22 10:36 | Outpatient (CLI) | payer OTHER, SELFPAY ==
[2021-09-22] MEDS: COVID-19 VACC #3, MRNA(MOD) 50 MCG/0.25 ML VIAL IM (10:45)
== END ==
PROVIDERS: PCP Physician Assistant Medical; Visit Provider Internal Medicine
DX: Z23 Encounter for immunization (principal)
CPT/HCPCS: 0013A; 91301

== ENCOUNTER → 2021-12-20 10:09 | Outpatient (CLI) | payer OTHER, SELFPAY ==
--- NOTE | 2021-12-20 10:10 | DI.RAD.S_ITS ---
PROCEDURE: XR CHEST 2V INDICATIONS: cough, SOB TECHNIQUE: 2 views of the chest were acquired. COMPARISON: [facility], , CHEST 2 VIEW, 07/13/2012, 19:30. [facility], , XR CHEST 2V, 11/29/2020, 14:05. FINDINGS: Surgical changes and devices: None. Lungs and pleura: No consolidation. Lungs appear unchanged. No pleural effusions or pneumothorax. Mediastinum: Mediastinal contours are unchanged. Heart size is normal. Bones and chest wall: No suspicious bony abnormalities. Soft tissues appear unremarkable. IMPRESSION: No acute cardiopulmonary abnormality identified. Low-dose CT of the chest could be considered for further evaluation. Dictated by: Aryan Gage M.D. on 12/20/2021 at 10:28 Approved by: Aryan Gage M.D. on 12/20/2021 at 10:31
== END ==
PROVIDERS: PCP Physician Assistant Medical; Referring Provider Nurse Practitioner Family; Visit Provider Nurse Practitioner Family
DX: R05.9 Cough, unspecified (principal); R06.02 Shortness of breath
CPT/HCPCS: 71046

== ENCOUNTER → 2022-04-19 08:37 | Outpatient (CLI) | payer OTHER, SELFPAY ==
[2022-04-19 09:03] LABS: Add Manual Diff / Slide Review NO; Basophils Absolute Auto 100 /uL (0-100); Basophils Percent Auto 0.7 % (0-2); Eosinophils Absolute Auto 100 /uL (0-450); Eosinophils Percent Auto 0.8 % (2-4); Hematocrit 36.5 % (36-46); Hemoglobin 12.2 g/dL (12.0-16.0); Lymphocytes Absolute Auto 2100 /uL (1100-4500); Lymphocytes Percent Auto 26.6 % (25-40); Mean Corpuscular HGB Conc 33.3 % (30-36); Mean Corpuscular Hemoglobin 27.1 PG (26-34); Mean Corpuscular Volume 81.2 fL (80-100); Monocytes Absolute Auto 400 /uL (0-900); Monocytes Percent Auto 5.5 % (3-14); Neutrophils Absolute Auto 5300 /uL (1500-7000); Neutrophils Percent Auto 66.4 % (50-75); Platelet Count 349 X10^3/uL (150-400); Red Blood Cell Count 4.49 X10^6/uL (4.0-5.2)
[2022-04-19 09:38] LABS: Alanine Aminotransferase 30 IU/L (<35); Albumin 4.2 g/dL (3.5-5.0); Albumin Globulin Ratio 1.1 (1.0-2.8); Alkaline Phosphatase 91 U/L (38-126); Aspartate Aminotransferase 32 IU/L (14-36); BUN Creatinine Ratio 12.1 (6-22); Bilirubin Total 0.3 mg/dL (0.2-1.3); Blood Urea Nitrogen 8 mg/dL (7-17); Carbon Dioxide 26 mmol/L (22-32); Chloride 106 mmol/L (98-107); Cholesterol 197 mg/dL (140-199); Estimated Glomerular Filt Rate > 60 mL/min (>60); Globulin 3.9 g/dL (1.7-4.1); Glucose 102 mg/dL (70-100); HDL Cholesterol 38 mg/dL (40-60); HEMOLYSIS < 15 (0-50); LDL Cholesterol Calculated 135 mg/dL (<100); Potassium 4.1 mmol/L (3.4-5.1); Sodium 138 mmol/L (137-145); Total Protein 8.1 g/dL (6.3-8.2); Triglycerides 121 mg/dL (35-150)
[2022-04-19 10:13] LABS: TSH w/ Reflex to FT4 1.11 uIU/mL (0.47-4.68)
== END ==
PROVIDERS: PCP Physician Assistant Medical; Referring Provider Physician Assistant Medical; Visit Provider Physician Assistant Medical
DX: Z00.00 Encounter for general adult medical examination without abnormal findings (principal)
CPT/HCPCS: 36415; 80053; 80061; 84443; 85025

== ENCOUNTER → 2022-08-28 10:20 | Outpatient (CLI) | payer OTHER, SELFPAY | PROVIDERS: Family Provider Physician Assistant Medical; PCP Physician Assistant Medical; Referring Provider Internal Medicine; Visit Provider Internal Medicine | DX: Z23 Encounter for immunization (principal) | CPT/HCPCS: 90471; 90686 ==

== ENCOUNTER → 2022-10-29 08:10 | Outpatient (CLI) | payer OTHER, SELFPAY ==
[2022-10-29 08:38] LABS: COVID19 -Nasal RAPID Negative (Negative)
== END ==
PROVIDERS: Family Provider Physician Assistant Medical; PCP Physician Assistant Medical; Referring Provider Internal Medicine; Visit Provider Internal Medicine
DX: Z20.822 Contact with and (suspected) exposure to COVID-19 (principal)
CPT/HCPCS: 87635; C9803

== ENCOUNTER → 2022-10-29 11:18 | Outpatient (CLI) | payer OTHER, SELFPAY ==
--- NOTE | 2022-10-31 09:39 | PM.PFT.1 ---
Pulmonary Function Test Referral & Results Date Patient Seen: 10/29/22 Requesting provider: Heather Wiley Results: The spirometry demonstrates an FVC of 3.85 L which is 99% of predicted. The FEV1 was measured at 3.32 L which is 103% of predicted. The FEV1/FVC ratio was 86 which is 103% of predicted. Following the administration of bronchodilator there was 16% improvement in FEF 25-75%. Lung volumes show an SVC of 4.02 L which is 109% of predicted. The diffusing capacity was measured at 23.79 which is 92% of predicted. The maximum voluntary ventilation was normal Interpretation: This study demonstrates normal pulmonary function
== END ==
PROVIDERS: Family Provider Physician Assistant Medical; PCP Physician Assistant Medical; Referring Provider Physician Assistant Medical; Visit Provider Physician Assistant Medical
DX: R05.3 Chronic cough (principal); Z20.822 Contact with and (suspected) exposure to COVID-19
CPT/HCPCS: 87635; 94060; 94726; 94729; C9803

== ENCOUNTER → 2022-11-15 12:52 | Outpatient (CLI) | payer OTHER, SELFPAY ==
--- NOTE | 2022-11-15 12:55 | DI.RAD.S_ITS ---
PROCEDURE: XR CHEST 2V INDICATIONS: CHRONIC COUGH TECHNIQUE: 2 views of the chest were acquired. COMPARISON: [facility], CR, XR CHEST 2V, 12/20/2021, 10:04. FINDINGS: Surgical changes and devices: None. Lungs and pleura: Lungs are clear. No pleural effusions or pneumothorax. Mediastinum: Mediastinal contours are normal. Heart size is normal. Bones and chest wall: No suspicious bony abnormalities. Soft tissues appear unremarkable. IMPRESSION: No acute cardiopulmonary abnormalities or focal airspace disease. Dictated by: Ollie Lott M.D. on 11/15/2022 at 16:56 Approved by: Ollie Lott M.D. on 11/15/2022 at 16:56
== END ==
PROVIDERS: Family Provider Physician Assistant Medical; PCP Physician Assistant Medical; Referring Provider Family Medicine; Visit Provider Family Medicine
DX: R05.3 Chronic cough (principal)
CPT/HCPCS: 71046

== ENCOUNTER → 2022-12-26 15:39 | Outpatient (CLI) | payer OTHER, SELFPAY ==
--- NOTE | 2022-12-26 15:41 | DI.CT.S_ITS ---
PROCEDURE: CT CHEST W CON INDICATIONS: Chronic cough TECHNIQUE: After the administration of intravenous contrast, 5 mm thick sections acquired from the pulmonary apices to the posterior costophrenic angles. 1 mm axial lung, 5 mm thick coronal and sagittal reformats and 7 mm axial MIP were acquired. For radiation dose reduction, the following was used: automated exposure control, adjustment of mA and/or kV according to patient size. COMPARISON: [facility], CR, XR CHEST 2V, 11/15/2022, 12:56. FINDINGS: Image quality: Excellent. Lungs and pleura: No acute air space opacities. No pleural effusions or pneumothorax. Central and peripheral airways are patent and normal in caliber. Mediastinum: Heart size is normal. No pericardial effusion. No mediastinal or hilar adenopathy by size criteria. Thoracic aorta and central pulmonary arteries are normal in size. Esophagus is normal in caliber. No hiatal hernia. Bones and chest wall: No suspicious bony lesions. No vertebral body compression fractures. No axillary or supraclavicular adenopathy by size criteria. Thyroid gland unremarkable . Abdomen: Visualized upper abdominal solid organs appear normal. Upper abdominal bowel loops are normal in caliber. IMPRESSION: Normal CT of the chest Approved by: Chandan Crawford M.D. on 12/26/2022 at 19:28
== END ==
PROVIDERS: Family Provider Physician Assistant Medical; PCP Physician Assistant Medical; Referring Provider Physician Assistant Medical; Visit Provider Physician Assistant Medical
DX: R05.3 Chronic cough (principal)
CPT/HCPCS: 71260; Q9967

== ENCOUNTER 2023-03-06 21:13 | Emergency (ER) | payer OTHER, SELFPAY ==
[2023-03-06 21:17] VITALS: BP 141/93; PULSE 95; RESP 18; TEMP 37; O2SAT 97; BMI 49.9
[2023-03-06] MEDS: ONDANSETRON 4 MG ODT SL (21:28)
[2023-03-06 23:40] LABS: Appearance Urine UA CLOUDY; Bilirubin Urine UA NEGATIVE (NEGATIVE); Color Urine UA RED; Glucose Urine UA NEGATIVE (Negative); Ketones Urine UA NEGATIVE (NEGATIVE); Leukocyte Esterase Urine UA 1+ (NEGATIVE); Nitrite Urine UA NEGATIVE (Negative); Occult Blood Urine UA 3+ (Negative); Protein Urine UA TRACE (Negative); Specific Gravity Urine UA <=1.005 (1.000-1.035); Urobilinogen Urine UA 0.2 E.U./dL (0.2)
[2023-03-06 23:43] LABS: pH Urine UA 6.5 (4.5-8.0)
[2023-03-06 23:46] LABS: RBC Urine 10-30/HPF (0-5/HPF)
[2023-03-06 23:47] LABS: Bacteria Urine Few (2-10); Culture Indicated Urine Specimen Cultured; Squamous Epithelial Cell Urine 0-1 /HPF (0-5/HPF); WBC Urine 5-10/HPF (0-5/HPF)
--- NOTE | 2023-03-07 01:58 | ED_ITS ---
HPI - Female Genitourinary General Chief complaint: Urogenital-Female Stated complaint: nausea, vomiting, fever Time Seen by Provider: 03/07/23 01:21 Source: patient Mode of arrival: Ambulatory History of Present Illness HPI Narrative: Patient is a 32-year-old female had significant past medical history presenting today with vaginal pain. She reports that this morning she woke up and noted when she was wiping she had some pain on the right side. She does have some enlarged labia, but usually not a problem. She reports that the right side is very tender. She is had some nausea vomiting today. She feels like she is may have had low-grade fever well. She also reports that she started her menstrual cycle today. She is been having some mild cramping. It is not significantly heavy. No painful or frequent urination. Related Data Previous Rx's Medication Instructions Recorded ondansetron 4 mg disintegrating 4 mg PO Q8H PRN nausea and 07/22/20 tablet vomiting #10 tabs prednisone 20 mg tablet 20 mg PO DAILY #5 tabs 11/29/20 albuterol sulfate 90 mcg/actuation 2 puff inhalation Q6H PRN 12/20/21 aerosol inhaler shortness of breath or wheezing #6.7 grams doxycycline hyclate 100 mg capsule 100 mg PO BID #14 caps 03/07/23 Allergies Allergy/AdvReac Type Severity Reaction Status Date / Time amoxicillin [AMOXICILLIN] Allergy Severe FULL BODY Verified 11/29/20 12:33 RASH Review of Systems Review of Systems ROS Unobtainable: All systems reviewed & are unremarkable except as noted in HPI and below Patient History Medical History Abdominal pain Biliary dyskinesia GERD (gastroesophageal reflux disease) Leg swelling Palpitations Shortness of breath alcohol intake frequency: 0-2 drinks per day Last Alcoholic Drink: does not use Substance Use Type: does not use Exam Initial Vital Signs Initial Vital Signs: Vital Signs Temperature 98.6 F 03/06/23 21:17 Pulse Rate 95 H 03/06/23 21:17 Respiratory Rate 18 03/06/23 21:17 Blood Pressure 141/93 H 03/06/23 21:17 Pulse Oximetry 97 03/06/23 21:17 Oxygen Delivery Method Room Air 03/06/23 21:17 GENERAL: Alert 32-year-old female HEENT: Head atraumatic,EOMI, pupils reactive CARDIOVASCULAR: Regular rate and rhythm without murmurs, rubs or gallops. RESPIRATORY: Breath sounds equal bilaterally, no wheezes rales or rhonchi. ABDOMEN: Soft, nontender. Normoactive bowel sounds all 4 quadrants. No guarding or rebound. PELVIC enlarged labia minora bilaterally. Right side is mildly swollen and erythematous. Possible early abscess some fluctuant area about 1 cm. There is no bony and cyst. She is mildly tender suprapubically as well more on the right than the left but no obvious swelling or erythema noted. : No CVA tenderness EXTREMITIES: Normal range of motion, no clubbing or edema. Neurovascularly intact NEUROLOGICAL: Alert and oriented x4. SKIN: Warm, dry, no laceration, no petechiae, no rashes or lesions. A pelvic Course Orders Ordered: ED Orders 03/06/23 21:25 Urinalysis and Microscopic Stat Urine Culture Stat Discontinued Medications Doxycycline Hyclate (Doxycycline Hyclate 100 Mg Tablet) 100 mg PO NOW ONE Stop: 03/07/23 02:20 Last Admin: 03/07/23 02:29 Dose: 100 mg Documented By: STANTON Ondansetron HCl (Ondansetron 4 Mg Odt) 4 mg SL NOW PRN PRN Reason: Nausea And Vomiting Last Admin: 03/06/23 21:28 Dose: 4 mg Documented By: TAYLOR Ondansetron HCl (Ondansetron 4 Mg/2 Ml Inj) 4 mg IV NOW PRN PRN Reason: Nausea And Vomiting Vital Signs Vital signs: Vital Signs - 8 hr 03/06/23 21:17 03/07/23 02:35 Temperature 98.6 F Pulse Rate 95 H 85 Respiratory Rate 18 18 Blood Pressure 141/93 H 133/61 Pulse Oximetry 97 96 Oxygen Delivery Method Room Air Room Air MDM - Female Genitourinary Lab Data Labs: Lab Results 03/06/23 Range/Units 21:25 Urine Color Red Urine Appearance Cloudy Urine pH 6.5 (4.5-8.0) Ur Specific [place] <=1.005 (1.000-1.035) Urine Protein Trace H (Negative) Urine Glucose (UA) Negative (Negative) g/dL Urine Ketones Negative (NEGATIVE) Urine Occult Blood 3+ H (Negative) Urine Nitrate Negative (Negative) Urine Bilirubin Negative (NEGATIVE) Urine Urobilinogen 0.2 (0.2) E.U./dL Ur Leukocyte Esterase 1+ H (NEGATIVE) Urine RBC 10-30/hpf H (0-5/HPF) Urine WBC 5-10/hpf H (0-5/HPF) Ur Squamous Epith Cells 0-1 /hpf (0-5/HPF) Urine Bacteria Few (2-10) H (None) Ur Culture Indicated? Specimen cultured Urine Dip Bedside Urine Glucose Negative Bedside Urine Bilirubin - Negative Bedside Urine Ketone - Negative Urine Specific [place] 1.00 Bedside Urine Occult Blood +++ Bedside Urine pH 7.0 Bedside Urine Protein +/- 15 Bedside Urine Urobilinogen - Negative Bedside Urine Nitrite - Negative Bedside Urine Leukocytes + 70 Esterase MDM Narrative Medical decision making narrative: Patient 32-year-old female has enlarged swollen right labia. I suspect possible like cellulitis versus early abscess. There is nothing really to drain this time. She is hemodynamically stable she is afebrile not tachycardic or hypotensive here in the ED. She overall appears well. She has no comorbidities. She does however have a BMI of 49. At this time I do not think blood work or further workup is necessary. We will start her on antibiotics and supportive care. Low threshold to return and strict return precautions are given. Discharge Plan Departure Patient Disposition: Home Clinical Impression: Labial infection Instructions: DI for Cellulitis -- Adult Activity Restrictions/Additional Instructions: *You have been diagnosed with cellulitis *What to do: At this time I recommend warm baths. 1-2 times daily if possible. Monitor swelling closely. *Continue to take medications as directed Doxycycline 100 mg twice a day for 7 days--> [facility] [place] *Follow up with your primary care provider in 2-3 days or call [phone] *Return to ER if you should have increasing pain redness swelling fever body or any new, worsening or concerning symptoms Prescriptions: New doxycycline hyclate 100 mg capsule 100 mg PO BID Qty: 14 0RF No Action albuterol sulfate 90 mcg/actuation HFA aerosol inhaler 2 puff inhalation Q6H PRN (Reason: shortness of breath or wheezing) Qty: 6.7 0RF prednisone 20 mg tablet 20 mg PO DAILY Qty: 5 0RF ondansetron 4 mg tablet,disintegrating 4 mg PO Q8H PRN (Reason: nausea and vomiting) Qty: 10 0RF Referrals: Heather Wiley PA-C [Primary Care Provider] - Stand Alone Forms: Patient Portal/API
[2023-03-07] MEDS: DOXYCYCLINE HYCLATE 100 MG TABLET PO (02:29)
[2023-03-07 02:35] VITALS: BP 133/61; PULSE 85; RESP 18; O2SAT 96
== END 2023-03-07 02:35 | disposition home or self-care (01) ==
PROVIDERS: Emergency Provider Emergency Medicine; Family Provider Physician Assistant Medical; PCP Physician Assistant Medical
DX: N76.0 Acute vaginitis (principal); R11.2 Nausea with vomiting, unspecified
CPT/HCPCS: 81001; 81003; 87086; 99283

== ENCOUNTER → 2023-08-29 | Outpatient (CLI) | payer OTHER, SELFPAY | PROVIDERS: Family Provider Physician Assistant Medical; PCP Physician Assistant Medical; Referring Provider Family Medicine; Visit Provider Family Medicine | DX: Z23 Encounter for immunization (principal) | CPT/HCPCS: 90471; 90686 ==

== ENCOUNTER → 2023-09-16 10:49 | Outpatient (CLI) | payer OTHER, SELFPAY ==
--- NOTE | 2023-09-16 | DI.RAD.S_ITS ---
PROCEDURE: FL BARIUM SWALLOW W SPEECH INDICATIONS: PILL DYSPHAGIA/GASTROESPHAGEAL REFULX DISEASE COMPARISON: None. TECHNIQUE: Examination was conducted in conjunction with speech pathology per standard protocol. In the lateral projection, filming was performed of the patient swallowing. AP projection filming may also be performed with patient swallowing. COMPARISON: FINDINGS: Function: The oral preparatory phase appears normal, with proper containment. The subsequent oral propulsive phase, pharyngeal phase, and esophageal phase of swallowing also appear normal with all proffered substances. No laryngotracheal penetration or aspiration. No pathologic vallecular pooling. Morphology: No cricopharyngeal bar is identified. No cervical esophageal webs. No Zenker's diverticulum. No strictures. IMPRESSION: Normal modified barium swallow with speech pathology. Please see separate speech pathology report for further details. Dictated by: Ollie Lott M.D. on 09/16/2023 at 17:31 Approved by: Ollie Lott M.D. on 09/16/2023 at 17:31
--- NOTE | 2023-09-16 14:22 | ST.SWALLOW ---
Visit Care Team Role Provider Type Heather Wiley PA-C Family Provider Non-Staff Primary Care Provider Specialty: Medical Address: [address] [place] [address] [address], [place], [address] Email: Jg Noyola MD Attending Provider Physician Referring Provider Specialty: Ear, Nose, Throat Address: [address] [place] [address] [place], [address] Email: [email or web address] Modified Barium Swallow Study INSPECTING SUPERVISOR Modified Barium Swallow Study Start: 09/16/23 11:51 Freq: Status: Active Protocol: Document 09/16/23 11:51 LNK (Rec: 09/16/23 11:55 LNK [id number]) Modified Barium Swallow Study Total Time Visit Start Time 11:45 Visit Stop Time 12:15 Total Visit Minutes [address] Jg Noyola Reason for Referral dysphagia Setting Setting Outpatient Care Patient Information Identification Type Name,Date of Patient History Pt was seen for a Modified Barium Swallow Study (MBSS) at the referral of Dr. Noyola. According to the pt, she has been having difficulty swallowing pills at night. She denies difficulty swallowing pills in the morning. Pt has a diagnosis of GERD for which she is on omneprozol bid. Pt reported following GERD precautions, but stated she feels her reflux is poorly managed. She stated that she saw a GI specialist who recommended an esophagram, but this was never carried out. In describing her swallowing, pt reported that small pills get stuck in her throat and do not seem to clear with water sips. She denied difficulty swallowing solid foods or liquids. She also stated that if she coughs a lot or hard, she will throw up undigested foods. Subjective Observations Pt was seated in the fluoroscopy chair with instructions and procedures described for her. She indicatedshe understood and agreed to proceed. Patient Positioning Position View Lat-A/P Imaging Lateral View Textures Administered Trials Presented Thin Liquid via Spoon (IDDSI 0 ),Thin Liquid via Cup (IDDSI 0 ),Extremely Thick Liquid via Spoon (IDDSI 4),Regular (IDDSI 7) Barium Tablet Yes The IDDSI Framework Protocol: IDDSI.1 Oral Impairment Source: The Modified Barium Swallow Impairment Profile (MBSImP??) Lip Closure No labial escape Tongue Control During Bolus Hold Cohesive bolus between tongue to palatal seal Bolus Preparation/Mastication Timely & efficient chewing & mashing Bolus Transport/Lingual Motion Brisk tongue motion Oral Residue Residue collection on oral structures Location Tongue Initiation of Pharyngeal Swallow Bolus head at posterior angle of ramus (first hyoid excursion) Additional Oral Impairment Observations OME and DKS were observed to be WNL. Mastication was efficient with a rotart chew pattern. Good bolus formation, control and AP transition. Oral phase of swallow observed to be WNL. Pharyngeal Impairment Source: The Modified Barium Swallow Impairment Profile (MBSImP??) Soft Palate Elevation Trace column of contrast between soft palate & pharyngeal wall Laryngeal Elevation Comp.sup.move.thyroid cart.w/ comp.approx.arytenoids to epiglot petiole Anterior Hyoid Excursion Complete anterior movement Epiglottic Movement Complete inversion Laryngeal Vestibular Closure Complete; no air/contrast in laryngeal vestibule Pharyngeal Stripping Wave Present - complete Pharyngoesophageal Segment Opening Complete distention & complete duration; no obstruction of flow Tongue Base Retraction Trace column of contrast/air betwn tongue base & post. pharyngeal wall Pharyngeal Residue Trace residue within/on pharyngeal structures Location Diffuse (>3 areas) Additional Pharyngeal Impairment Pt's pharyngeal phase of Observations swallowing was observed to be WNL. A/P View Textures Administered Trials Presented Thin Liquid via Cup (IDDSI 0) The IDDSI Framework Protocol: IDDSI.1 A/P View Observations Pharyngeal Contraction Complete Esophageal Clearance Upright Position Complete clearance; esophageal coating Esophageal Function WFL Additional A-P Observations Esophageal phase of pt's swallowing was observed to be WNL. Her esophagus cleared all trials within a timely manner. Clinical Impressions Dysphagia Type WNL Findings Pt presented with swallowing WNL. Relative to her GERD, she describes a sore throat daily, undigested emisis, especially when coughing hard, and GI trouble. Pt reported taking omneprozol bid and following reflux precautions, despite ongoing s/sx of GERD. Pt reported that she was told in the past by a GI to have an esophagram and EGD, if necessary. However, this was not followed up by the doctor, per pt report. Recommend referral to GI for further assessment. Patient Appropriate for Therapy No Recommendations Diet Comments No change in diet is recommended at this time Treatment Plan Recommended Referrals GI Consult
== END ==
PROVIDERS: Family Provider Physician Assistant Medical; PCP Physician Assistant Medical; Referring Provider Otolaryngology; Visit Provider Otolaryngology
DX: R13.10 Dysphagia, unspecified (principal); K21.9 Gastro-esophageal reflux disease without esophagitis; R07.0 Pain in throat
CPT/HCPCS: 74230; 92611

== ENCOUNTER 2023-09-21 09:35 | Emergency (ER) | payer OTHER, SELFPAY ==
[2023-09-21 09:45] VITALS: BP 135/69; PULSE 74; RESP 20; TEMP 36.7; O2SAT 94; BMI 49.9
[2023-09-21] MEDS: ONDANSETRON 4 MG/2 ML INJ IV (10:16)
[2023-09-21 10:18] LABS: Add Manual Diff / Slide Review NO; Basophils Absolute Auto 100 /uL (0-100); Basophils Percent Auto 0.8 % (0-2); Eosinophils Absolute Auto 100 /uL (0-450); Eosinophils Percent Auto 0.8 % (2-4); Hemoglobin 12.3 g/dL (12.0-16.0); Lymphocytes Absolute Auto 2100 /uL (1100-4500); Lymphocytes Percent Auto 25.5 % (25-40); Mean Corpuscular HGB Conc 32.5 % (30-36); Mean Corpuscular Hemoglobin 26.3 PG (26-34); Monocytes Absolute Auto 400 /uL (0-900); Monocytes Percent Auto 4.5 % (3-14); Neutrophils Absolute Auto 5600 /uL (1500-7000); Neutrophils Percent Auto 68.4 % (50-75); Platelet Count 376 X10^3/uL (150-400); Red Blood Cell Count 4.69 X10^6/uL (4.0-5.2); White Blood Cell Count 8.2 X10^3/uL (4.5-11.0)
[2023-09-21 10:24] LABS: Alanine Aminotransferase 34 IU/L (<35); Albumin 4.2 g/dL (3.5-5.0); Albumin Globulin Ratio 1.1 (1.0-2.8); Alkaline Phosphatase 79 U/L (38-126); Aspartate Aminotransferase 31 IU/L (14-36); BUN Creatinine Ratio 13.6 (6-22); Bilirubin Total 0.3 mg/dL (0.2-1.3); Blood Urea Nitrogen 9 mg/dL (7-17); Calcium 10.1 mg/dL (8.4-10.2); Carbon Dioxide 24 mmol/L (22-32); Chloride 107 mmol/L (98-107); Estimated Glomerular Filt Rate > 60 mL/min (>60); Globulin 3.9 g/dL (1.7-4.1); Glucose 98 mg/dL (70-100); HEMOLYSIS 17 (0-50); Lipase 41 U/L (23-300); Potassium 4.2 mmol/L (3.4-5.1); Sodium 139 mmol/L (137-145); Total Protein 8.1 g/dL (6.3-8.2)
--- NOTE | 2023-09-21 11:24 | ED_ITS ---
HPI - Abdominal Pain General Chief Complaint: Abdominal Pain Stated Complaint: abd/lower chest pain, nausea, diaherrea Time Seen by Provider: 09/21/23 10:21 Source: patient Mode of arrival: Ambulatory History of Present Illness HPI narrative: Patient is a 33-year-old female history of cholecystectomy, presenting today with epigastric pain nausea vomiting. She reports that for the last 5 days she is had episodes of nausea and vomiting she reports the 1st day was worse. She is been dry heaving. Significant decrease in appetite. She is felt warm but is afebrile here. Not dizzy or lightheaded. No other abdominal pain. She feels thirsty. Related Data Previous Rx's Medication Instructions Recorded ondansetron 4 mg disintegrating 4 mg PO Q8H PRN nausea and 07/22/20 tablet vomiting #10 tabs prednisone 20 mg tablet 20 mg PO DAILY #5 tabs 11/29/20 albuterol sulfate 90 mcg/actuation 2 puff inhalation Q6H PRN 12/20/21 aerosol inhaler shortness of breath or wheezing #6.7 grams doxycycline hyclate 100 mg capsule 100 mg PO BID #14 caps 03/07/23 ondansetron 4 mg disintegrating 4 mg PO Q8H PRN nausea and 09/21/23 tablet vomiting #10 tabs Allergies Allergy/AdvReac Type Severity Reaction Status Date / Time amoxicillin [AMOXICILLIN] Allergy Severe FULL BODY Verified 09/21/23 10:05 RASH Patient History Medical History Abdominal pain Biliary dyskinesia GERD (gastroesophageal reflux disease) Leg swelling Palpitations Shortness of breath Social History Smoking Status: Never smoker Smoking Status: Never smoker alcohol intake frequency: 0-2 drinks per day Substance Use Type: does not use Exam Initial Vital Signs Initial Vital Signs: Vital Signs Temperature 98.1 F 09/21/23 09:45 Pulse Rate 74 09/21/23 09:45 Respiratory Rate 20 09/21/23 09:45 Blood Pressure 135/69 09/21/23 09:45 Pulse Oximetry 94 09/21/23 09:45 Oxygen Delivery Method Room Air 09/21/23 09:45 GENERAL: Alert well-appearing 33-year-old female and in no acute distress. HEENT: Head atraumatic,EOMI, pupils reactive, face symmetric, dry mucous membranes CARDIOVASCULAR: Regular rate and rhythm without murmurs, rubs or gallops. RESPIRATORY: Breath sounds equal bilaterally, no wheezes rales or rhonchi. ABDOMEN: Soft, epigastric pain no right upper quadrant pain no guarding no rebound Normoactive bowel sounds all 4 quadrants. No guarding or rebound. EXTREMITIES: Normal range of motion, no clubbing or edema. Neurovascularly intact NEUROLOGICAL: Alert and oriented x4.Normal gait and speech. SKIN: Warm, dry, no laceration, no petechiae, no rashes or lesions. Course Orders Ordered: ED Orders 09/21/23 09:58 Complete Blood Count AUTO DIFF Stat Comprehensive Metabolic Panel Stat Lipase Stat Discontinued Medications Ketorolac Tromethamine (Ketorolac 30 Mg/Ml Vial) 15 mg IV NOW ONE Stop: 09/21/23 11:30 Last Admin: 09/21/23 12:14 Dose: 15 mg Documented By: RLS Ondansetron HCl (Ondansetron 4 Mg/2 Ml Inj) 4 mg IV NOW PRN PRN Reason: Nausea And Vomiting Last Admin: 09/21/23 10:16 Dose: 4 mg Documented By: OW Ondansetron HCl (Ondansetron 4 Mg Odt) 4 mg PO NOW PRN PRN Reason: Nausea And Vomiting Vital Signs Vital signs: Vital Signs - 8 hr 09/21/23 09:45 09/21/23 12:13 Temperature 98.1 F Pulse Rate 74 57 L Respiratory Rate 20 16 Blood Pressure 135/69 131/61 Pulse Oximetry 94 96 Oxygen Delivery Method Room Air Room Air MDM - Abdominal Pain Lab Data 09/21/23 09:58 09/21/23 09:58 Labs: Lab Results 09/21/23 Range/Units 09:58 WBC 8.2 (4.5-11.0) X10^3/uL RBC 4.69 (4.0-5.2) X10^6/uL Hgb 12.3 (12.0-16.0) g/dL Hct 38.0 (36-46) % MCV 81.0 (80-100) fL MCH 26.3 (26-34) PG MCHC 32.5 (30-36) % RDW 16.0 H (11.6-14.8) % Plt Count 376 (150-400) X10^3/uL Neut % (Auto) 68.4 (50-75) % Lymph % (Auto) 25.5 (25-40) % Mccone % (Auto) 4.5 (3-14) % Eos % (Auto) 0.8 L (2-4) % Baso % (Auto) 0.8 (0-2) % Neut # (Auto) 5600 (3683-1302) /uL Lymph # (Auto) 2100 (2281-5543) /uL M[place]one # (Auto) 400 (0-900) /uL Eos # (Auto) 100 (0-450) /uL Baso # (Auto) 100 (0-100) /uL Sodium 139 (137-145) mmol/L Potassium 4.2 (3.4-5.1) mmol/L Chloride 107 (98-107) mmol/L Carbon Dioxide 24 (22-32) mmol/L BUN 9 (7-17) mg/dL Creatinine 0.66 (0.52-1.04) mg/dL Estimated GFR > 60 (>60) mL/min BUN/Creatinine Ratio 13.6 (6-22) Glucose 98 (70-100) mg/dL Calcium 10.1 (8.4-10.2) mg/dL Total Bilirubin 0.3 (0.2-1.3) mg/dL AST 31 (14-36) IU/L ALT 34 (<35) IU/L Alkaline Phosphatase 79 (38-126) U/L Total Protein 8.1 (6.3-8.2) g/dL Albumin 4.2 (3.5-5.0) g/dL Globulin 3.9 (1.7-4.1) g/dL Albumin/Globulin Ratio 1.1 (1.0-2.8) Lipase 41 (23-300) U/L Point of care testing: Point of Care Testing Test Results Negative Urine Dip Bedside Urine Glucose Negative Bedside Urine Bilirubin - Negative Bedside Urine Ketone - Negative Urine Specific [place] 1.000 Bedside Urine Occult Blood +++ Bedside Urine pH 8 Bedside Urine Protein - Negative Bedside Urine Urobilinogen - Negative Bedside Urine Nitrite - Negative Bedside Urine Leukocytes - Negative Esterase MDM Narrative Medical decision making narrative: Patient well-appearing 33-year-old female presenting today with gastroenteritis like symptoms. She is tender epigastric region however blood work has been reviewed overall reassuring no elevated LFTs bilirubin of lipase. No right upper quadrant pain prior cholecystectomy. At this time I think she is mostly sore from vomiting. She is no longer vomiting in the she received Zofran and Toradol. Vitals are stable she is able to tolerate p.o. fluids. She feels ready able to go would like prescription for Zofran Discharge Plan Departure Patient Disposition: Home Clinical Impression: Gastroenteritis Instructions: DI for Viral Gastroenteritis -- Adult Activity Restrictions/Additional Instructions: *You have been diagnosed with gastroenteritis *What to do: Increase fluids as tolerated recommend Gatorade or Gatorade like product *Continue to take medications as directed Zofran 4 mg every 8 hours if needed for nausea or vomiting -->[facility] *Follow up with your primary care provider in 2-3 days or call [phone] *Return to ER if you should have persistent vomiting dizziness lightheadedness burning abdominal pain or any new, worsening or concerning symptoms Prescriptions: New ondansetron 4 mg tablet,disintegrating 4 mg PO Q8H PRN (Reason: nausea and vomiting) Qty: 10 0RF No Action albuterol sulfate 90 mcg/actuation HFA aerosol inhaler 2 puff inhalation Q6H PRN (Reason: shortness of breath or wheezing) Qty: 6.7 0RF prednisone 20 mg tablet 20 mg PO DAILY Qty: 5 0RF ondansetron 4 mg tablet,disintegrating 4 mg PO Q8H PRN (Reason: nausea and vomiting) Qty: 10 0RF doxycycline hyclate 100 mg capsule 100 mg PO BID Qty: 14 0RF Referrals: Heather Wiley PA-C [Primary Care Provider] - Stand Alone Forms: Patient Portal/API
[2023-09-21 12:13] VITALS: BP 131/61; PULSE 57; RESP 16; O2SAT 96
[2023-09-21] MEDS: KETOROLAC 30 MG/ML VIAL 15 MG IV (12:14)
== END 2023-09-21 12:33 | disposition home or self-care (01) ==
PROVIDERS: Emergency Provider Emergency Medicine; Family Provider Physician Assistant Medical; PCP Physician Assistant Medical
DX: K52.9 Noninfective gastroenteritis and colitis, unspecified (principal); R11.2 Nausea with vomiting, unspecified
CPT/HCPCS: 36415; 80053; 81003; 81025; 83690; 85025; 96374; 96375; 99284; J1885; J2405

== ENCOUNTER 2023-10-23 10:23 | Emergency (ER) | payer OTHER, SELFPAY ==
[2023-10-23 10:27] VITALS: BP 139/76; PULSE 61; RESP 18; TEMP 36.9; O2SAT 95; BMI 54.9
[2023-10-23 11:13] LABS: Add Manual Diff / Slide Review NO; Basophils Absolute Auto 100 /uL (0-100); Basophils Percent Auto 0.7 % (0-2); Eosinophils Absolute Auto 100 /uL (0-450); Eosinophils Percent Auto 0.8 % (2-4); Hematocrit 36.2 % (36-46); Hemoglobin 11.8 g/dL (12.0-16.0); Lymphocytes Absolute Auto 2300 /uL (1100-4500); Lymphocytes Percent Auto 29.6 % (25-40); Mean Corpuscular HGB Conc 32.6 % (30-36); Mean Corpuscular Hemoglobin 26.2 PG (26-34); Mean Corpuscular Volume 80.4 fL (80-100); Monocytes Absolute Auto 400 /uL (0-900); Monocytes Percent Auto 5.4 % (3-14); Neutrophils Absolute Auto 5000 /uL (1500-7000); Neutrophils Percent Auto 63.5 % (50-75); Platelet Count 349 X10^3/uL (150-400); Red Blood Cell Count 4.51 X10^6/uL (4.0-5.2); Red Cell Distribution Width 16.2 % (11.6-14.8); White Blood Cell Count 7.9 X10^3/uL (4.5-11.0)
[2023-10-23 11:30] LABS: BUN Creatinine Ratio 10.8 (6-22); Blood Urea Nitrogen 7 mg/dL (7-17); Calcium 9.4 mg/dL (8.4-10.2); Carbon Dioxide 25 mmol/L (22-32); Chloride 107 mmol/L (98-107); Estimated Glomerular Filt Rate > 60 mL/min (>60); Glucose 91 mg/dL (70-100); HEMOLYSIS < 15 (0-50); Potassium 4.1 mmol/L (3.4-5.1); Sodium 139 mmol/L (137-145)
--- NOTE | 2023-10-23 11:52 | ED_ITS ---
HPI - Extremity Problem <Lion Weston PA-C - Last Filed: 10/23/23 17:32> General Chief complaint: Extremity Problem,Nontraumatic Stated complaint: muscle spasm, speech difficulty Time Seen by Provider: 10/23/23 10:52 Source: patient Mode of arrival: Ambulatory History of Present Illness HPI Narrative: This is a 33-year-old female presents emergency department due to acute onset stuttering as well as nausea and and 1 episode of vomiting onset last night. She also reports chest pain intermittently as well as back pain and shortness of breath. States she was seen at the [facility] ER where they did blood test? prescribed Ativan. She took the Ativan which helped her fall asleep but symptoms did not improve. Denies any fevers. States she has a history of ?palpitations? and a right bundle branch block as diagnosed by her credit administration officer, Dr. Jurado. Related Data Home Medications Medication Instructions Recorded Confirmed pantoprazole 40 mg tablet,delayed 40 mg PO BID 09/25/23 09/25/23 release propranolol 20 mg tablet 10 mg PO BID 09/25/23 09/25/23 Previous Rx's Medication Instructions Recorded mupirocin 2 % topical ointment 1 applic topical TID #15 grams 09/25/23 ondansetron 4 mg disintegrating 4 mg PO Q8H PRN nausea and 10/15/23 tablet vomiting #7 tabs hydroxyzine HCl 25 mg tablet 25 mg PO QID PRN anxiety #30 tabs 10/23/23 Allergies Allergy/AdvReac Type Severity Reaction Status Date / Time amoxicillin [AMOXICILLIN] Allergy Severe FULL BODY Verified 10/23/23 10:35 RASH Review of Systems <Lion Weston PA-C - Last Filed: 10/23/23 17:32> Review of Systems Narrative: GENERAL: Denies chills, fatigue, malaise, fever, sweats. HEENT: Denies sinus pain, ear pain, sore throat, difficulty swallowing, dizziness. RESPIRATORY: Reports dyspnea, denies cough, wheezing, hemoptysis, sputum. CARDIOVASCULAR: Reports chest pain, palpitations, denies orthopnea, edema, GASTROINTESTINAL: Reports nausea, vomiting, denies abdominal pain, diarrhea, constipation, melena. : Denies dysuria, frequency, incontinence, hematuria, urinary retention. MUSCULOSKELETAL: denies weakness, joint pain, or bony pain SKIN: Denies rash, skin lesions, or other NEUROLOGIC: Reports stuttering. Denies weakness, headache, numbness, change in speech, confusion, seizures, incoordination. PSYCHIATRIC: No concerning psychosocial issues. 12 point review of systems is negative except for those stated above Patient History <Lion Weston PA-C - Last Filed: 10/23/23 17:32> Medical History Palpitations Leg swelling Shortness of breath Biliary dyskinesia Abdominal pain GERD (gastroesophageal reflux disease) Social History Smoking Status: Never smoker Smoking Status: Never smoker alcohol intake frequency: 0-2 drinks per day Substance Use Type: does not use Exam <Lion Weston PA-C - Last Filed: 10/23/23 17:32> Narrative Exam Narrative: GENERAL: Well-developed patient, in mild distress. HEAD: Atraumatic. Normocephalic. EYES: Pupils equal round and reactive. Extraocular motions intact. No scleral icterus. No injection or drainage. ENT: Nose without bleeding, purulent drainage. Throat without erythema, tonsillar hypertrophy or exudate. Airway patent. NECK: Trachea midline. Non tender CARDIOVASCULAR: Regular rate and rhythm without murmurs, gallops, or rubs. RESPIRATORY: Clear to auscultation. Breath sounds equal bilaterally. No wheezes, rales, or rhonchi. GASTROINTESTINAL: Abdomen soft, non-tender, nondistended. EXTREMITIES: No edema or joint tenderness. BACK: Nontender without deformity or crepitance. No flank tenderness. NEURO: AOx3. Cranial nerves 2 through 12 intact. Actively stuttering although improved throughout the course of the encounter.. SKIN: No rash or erythema of visible areas Initial Vital Signs Initial Vital Signs: Vital Signs Temperature 98.5 F 10/23/23 10:27 Pulse Rate 61 10/23/23 10:27 Respiratory Rate 18 10/23/23 10:27 Blood Pressure 139/76 10/23/23 10:27 Pulse Oximetry 95 10/23/23 10:27 Oxygen Delivery Method Room Air 10/23/23 10:27 <[address] DO - Last Filed: 10/24/23 09:05> Initial Vital Signs Initial Vital Signs: Vital Signs Temperature 98.5 F 10/23/23 10:27 Pulse Rate 61 10/23/23 10:27 Respiratory Rate 18 10/23/23 10:27 Blood Pressure 139/76 10/23/23 10:27 Pulse Oximetry 95 10/23/23 10:27 Oxygen Delivery Method Room Air 10/23/23 10:27 Course <Lion Weston PA-C - Last Filed: 10/23/23 17:32> Orders Ordered: ED Orders 10/23/23 11:00 BMP [Basic Metabolic Panel] Stat Complete Blood Count AUTO DIFF Stat Magnesium Stat TSH [Thyroid Stimulating Hormone] Stat Vitamin B12 Stat Vitamin D 25 Hydroxy (D3) Stat 10/23/23 12:19 CT head/brain wo con Stat 10/23/23 13:26 EKG-12 Lead Stat 10/23/23 13:27 XR chest 2V Stat 10/23/23 13:50 Troponin I Stat Consultations Consultation #1: 15 14: Discussed case with on-call neurology further urgent intervention.. They did not recommend any further imaging but did recommend adding magnesium, TSH, vitamin-D, B12 lab work. Vital Signs Vital signs: Vital Signs - 8 hr 10/23/23 10:27 10/23/23 16:07 Temperature 98.5 F Pulse Rate 61 60 Respiratory Rate 18 18 Blood Pressure 139/76 144/66 H Pulse Oximetry 95 95 Oxygen Delivery Method Room Air Room Air <Emerson Lane DO - Last Filed: 10/24/23 09:05> Orders Ordered: ED Orders 10/23/23 11:00 BMP [Basic Metabolic Panel] Stat Complete Blood Count AUTO DIFF Stat Magnesium Stat TSH [Thyroid Stimulating Hormone] Stat Vitamin B12 Stat Vitamin D 25 Hydroxy (D3) Stat 10/23/23 12:19 CT head/brain wo con Stat 10/23/23 13:26 EKG-12 Lead Stat 10/23/23 13:27 XR chest 2V Stat 10/23/23 13:50 Troponin I Stat Vital Signs Vital signs: Vital Signs - 8 hr 10/23/23 10:27 10/23/23 16:07 Temperature 98.5 F Pulse Rate 61 60 Respiratory Rate 18 18 Blood Pressure 139/76 144/66 H Pulse Oximetry 95 95 Oxygen Delivery Method Room Air Room Air MDM - Extremity (Nontraumatic) <Lion Weston PA-C - Last Filed: 10/23/23 17:32> Lab Data 10/23/23 11:00 10/23/23 11:00 Labs: Lab Results 10/23/23 10/23/23 Range/Units 11:00 13:50 WBC 7.9 (4.5-11.0) X10^3/uL RBC 4.51 (4.0-5.2) X10^6/uL Hgb 11.8 L (12.0-16.0) g/dL Hct 36.2 (36-46) % MCV 80.4 (80-100) fL MCH 26.2 (26-34) PG MCHC 32.6 (30-36) % RDW 16.2 H (11.6-14.8) % Plt Count 349 (150-400) X10^3/uL Neut % (Auto) 63.5 (50-75) % Lymph % (Auto) 29.6 (25-40) % [place] % (Auto) 5.4 (3-14) % Eos % (Auto) 0.8 L (2-4) % Baso % (Auto) 0.7 (0-2) % Neut # (Auto) 5000 (1473-0090) /uL Lymph # (Auto) 2300 (8129-3555) /uL [place] # (Auto) 400 (0-900) /uL Eos # (Auto) 100 (0-450) /uL Baso # (Auto) 100 (0-100) /uL Sodium 139 (137-145) mmol/L Potassium 4.1 (3.4-5.1) mmol/L Chloride 107 (98-107) mmol/L Carbon Dioxide 25 (22-32) mmol/L BUN 7 (7-17) mg/dL Creatinine 0.65 (0.52-1.04) mg/dL Estimated GFR > 60 (>60) mL/min BUN/Creatinine Ratio 10.8 (6-22) Glucose 91 (70-100) mg/dL Calcium 9.4 (8.4-10.2) mg/dL Magnesium 2.2 (1.6-2.3) mg/dL Troponin I < 0.012 (0.01-0.034) ng/mL Vitamin B12 488 (239-931) pg/mL 25-OH Vitamin D Total 30.2 (30.0-100.0) ng/mL TSH 0.587 (0.47-4.68) uIU/mL Imaging Data CT scan - head: Radiologist's Impression: [address] [address] [address] Scan Report Signed Patient: Susy Reyes MR#: [id number] : 1990 Acct:[id number] Age/Sex: 33 / F Date of Service: 10/23/23 Loc: ED Accession Number: [id number] Procedure: CT head/brain wo con Ordering Provider: Lion Weston P.A-C PROCEDURE: CT HEAD/BRAIN WO CON INDICATIONS: Stuttering onset last night TECHNIQUE: Noncontrast 4.5 mm thick angled axial sections acquired from the foramen magnum to the vertex, with coronal and sagittal reformats. For radiation dose reduction, the following was used: automated exposure control, adjustment of mA and/or kV according to patient size. COMPARISON: None. FINDINGS: Image quality: Excellent. CSF spaces: Basal cisterns are patent. No extra-axial fluid collections. Ventricles are normal in size and shape. Brain: No midline shift. No intracranial masses or hemorrhage. El-white matter interface is normal. Skull and face: Calvarium and visualized facial bones are intact, without suspicious lesions. Sinuses: Visualized sinuses and mastoids are clear. IMPRESSION: No acute intracranial abnormality. Dictated by: Tomasz Cyr M.D. on 10/23/2023 at 12:39 Approved by: Tomasz Cyr M.D. on 10/23/2023 at 12:40 Chest x-ray: Radiologist's Impression: [address] [address] XRay Report Signed Patient: Susy Reyes MR#: [id number] : 1990 Acct:[id number] Age/Sex: 33 / F Date of Service: 10/23/23 Loc: ED Accession Number: [id number] Procedure: XR chest 2V Ordering Provider: Lion Weston P.A-C PROCEDURE: XR CHEST 2V INDICATIONS: CP TECHNIQUE: 2 views of the chest were acquired. COMPARISON: [facility] , XR CHEST 2V, 11/15/2022, 12:56. FINDINGS: Surgical changes and devices: None. Lungs and pleura: Lungs are clear. No pleural effusions or pneumothorax. Mediastinum: Mediastinal contours are normal. Heart size is normal. Bones and chest wall: No suspicious bony abnormalities. Soft tissues appear unremarkable. Cholecystectomy clips. IMPRESSION: No acute cardiopulmonary process. Dictated by: Chiara Yanes M.D. on 10/23/2023 at 14:02 Approved by: Chiara aYnes M.D. on 10/23/2023 at 14:03 ECG Data Interpretation: EKG is normal sinus rhythm rate 64 beats per minute and free of any signs of ischemia or ectopy. No ST segmental elevation or depression. No T wave inversions. Evidence of right bundle-branch block MDM Narrative Medical decision making narrative: MDM * differential diagnosis includes but not limited to CVA, ACS, acute anxiety reaction, pneumonia * Prior records reviewed: Patient was seen here a month ago due to gastroenteritis. History of cholecystectomy. History of biliary dyskinesia. * My lab interpretation: CBC unremarkable, CMP unremarkable, troponin within normal limits, TSH unremarkable, vitamin-D, vitamin B12 unremarkable. * My imgaing interpretation: Chest x-ray and CT head unremarkable. * Clinical Decision Rules/Scores evaluated: None * Independent discussions with: None ED Course: This is a 33-year-old female presents emergency department due to an acute episode of stuttering as well as ?muscle spasms? yesterday after taking a shower. On initial exam the patient was significant stuttering although no, ?word salad? in full understanding of everything that was being spoken and very able to comply in the interview. She reported chest pain as well. Cardiac workup unremarkable. Regarding the stuttering CT head was initially ordered which was unremarkable. This case was discussed with your Neurology who recommended adding TSH, vitamin-D, and vitamin B12 12 within normal limits. Suspect this may be due to acute anxiety due to the shortness of breath she reported as well as the strange stuttering like symptoms. Hydroxyzine will be prescribed and patient will follow up with the primary care provider tomorrow. Shared Decision Making: Discussed plan with the patient who is comfortable with the plan. Social Considerations: None Disposition: Discharged to home <Emerson Lane DO - Last Filed: 10/24/23 09:05> Lab Data Labs: Lab Results 10/23/23 10/23/23 Range/Units 11:00 13:50 WBC 7.9 (4.5-11.0) X10^3/uL RBC 4.51 (4.0-5.2) X10^6/uL Hgb 11.8 L (12.0-16.0) g/dL Hct 36.2 (36-46) % MCV 80.4 (80-100) fL MCH 26.2 (26-34) PG MCHC 32.6 (30-36) % RDW 16.2 H (11.6-14.8) % Plt Count 349 (150-400) X10^3/uL Neut % (Auto) 63.5 (50-75) % Lymph % (Auto) 29.6 (25-40) % [place] % (Auto) 5.4 (3-14) % Eos % (Auto) 0.8 L (2-4) % Baso % (Auto) 0.7 (0-2) % Neut # (Auto) 5000 (9270-7950) /uL Lymph # (Auto) 2300 (6642-1469) /uL [place] # (Auto) 400 (0-900) /uL Eos # (Auto) 100 (0-450) /uL Baso # (Auto) 100 (0-100) /uL Sodium 139 (137-145) mmol/L Potassium 4.1 (3.4-5.1) mmol/L Chloride 107 (98-107) mmol/L Carbon Dioxide 25 (22-32) mmol/L BUN 7 (7-17) mg/dL Creatinine 0.65 (0.52-1.04) mg/dL Estimated GFR > 60 (>60) mL/min BUN/Creatinine Ratio 10.8 (6-22) Glucose 91 (70-100) mg/dL Calcium 9.4 (8.4-10.2) mg/dL Magnesium 2.2 (1.6-2.3) mg/dL Troponin I < 0.012 (0.01-0.034) ng/mL Vitamin B12 488 (239-931) pg/mL 25-OH Vitamin D Total 30.2 (30.0-100.0) ng/mL TSH 0.587 (0.47-4.68) uIU/mL Discharge Plan Departure Patient Disposition: Home Clinical Impression: Stuttering Activity Restrictions/Additional Instructions: Thank you for coming to the [facility] Emergency Department today. As we discussed your workup today was very reassuring. The CT head showed no abnormalities. We discussed your case with neurology who did not recommend any further intervention or imaging. All your lab work today was within normal limits. Your EKG showed no evidence of a ?heart attack?. This may be due to anxiety. Please take the medication as prescribed to see if this helps. I also recommended to follow up with the primary care provider as you have planned for tomorrow for further testing. I hope you feel better soon. Please follow up with your primary care provider within a week if your symptoms continue. If you do not have a primary care provider please contact the [facility] Resource line at [phone]. They will ask some questions about your medical history and help you get set up with a provider in the community. Prescriptions: New hydroxyzine HCl 25 mg tablet 25 mg PO QID PRN (Reason: anxiety ) Qty: 30 0RF No Action ondansetron 4 mg tablet,disintegrating 4 mg PO Q8H PRN (Reason: nausea and vomiting) Qty: 7 0RF pantoprazole 40 mg tablet,delayed release (DR/EC) 40 mg PO BID propranolol 20 mg tablet 10 mg PO BID mupirocin 2 % ointment 1 applic topical TID Qty: 15 0RF Referrals: Heather Wiley PA-C [Primary Care Provider] - Stand Alone Forms: Patient Portal/API ED Sign-out <Emerson Lane DO - Last Filed: 10/24/23 09:05> [facility] ED Attending Brijesh Attestation: I was immediately available in the department for consultation. Documentation has been reviewed. I agree with assessment and plan.
--- NOTE | 2023-10-23 12:19 | DI.CT.S_ITS ---
PROCEDURE: CT HEAD/BRAIN WO CON INDICATIONS: Stuttering onset last night TECHNIQUE: Noncontrast 4.5 mm thick angled axial sections acquired from the foramen magnum to the vertex, with coronal and sagittal reformats. For radiation dose reduction, the following was used: automated exposure control, adjustment of mA and/or kV according to patient size. COMPARISON: None. FINDINGS: Image quality: Excellent. CSF spaces: Basal cisterns are patent. No extra-axial fluid collections. Ventricles are normal in size and shape. Brain: No midline shift. No intracranial masses or hemorrhage. El-white matter interface is normal. Skull and face: Calvarium and visualized facial bones are intact, without suspicious lesions. Sinuses: Visualized sinuses and mastoids are clear. IMPRESSION: No acute intracranial abnormality. Dictated by: Tomasz Cyr M.D. on 10/23/2023 at 12:39 Approved by: Tomasz Cyr M.D. on 10/23/2023 at 12:40
--- NOTE | 2023-10-23 13:27 | DI.RAD.S_ITS ---
PROCEDURE: XR CHEST 2V INDICATIONS: CP TECHNIQUE: 2 views of the chest were acquired. COMPARISON: [facility], CR, XR CHEST 2V, 11/15/2022, 12:56. FINDINGS: Surgical changes and devices: None. Lungs and pleura: Lungs are clear. No pleural effusions or pneumothorax. Mediastinum: Mediastinal contours are normal. Heart size is normal. Bones and chest wall: No suspicious bony abnormalities. Soft tissues appear unremarkable. Cholecystectomy clips. IMPRESSION: No acute cardiopulmonary process. Dictated by: Chiara Yanes M.D. on 10/23/2023 at 14:02 Approved by: Chiara Yanes M.D. on 10/23/2023 at 14:03
[2023-10-23 14:25] LABS: Troponin I < 0.012 ng/mL (0.01-0.034)
[2023-10-23 15:24] LABS: Magnesium 2.2 mg/dL (1.6-2.3)
[2023-10-23 15:56] LABS: Thyroid Stimulating Hormone 0.587 uIU/mL (0.47-4.68)
[2023-10-23 16:07] VITALS: BP 144/66; PULSE 60; RESP 18; O2SAT 95
[2023-10-23 16:17] LABS: Vitamin B12 488 pg/mL (239-931)
[2023-10-23 17:29] LABS: Vitamin D 25 Hydroxy (D3) 30.2 ng/mL (30.0-100.0)
== END 2023-10-23 16:57 | disposition home or self-care (01) ==
PROVIDERS: Emergency Medicine; Emergency Provider Physician Assistant Medical; Family Provider Physician Assistant Medical; PCP Physician Assistant Medical
DX: F98.5 Adult onset fluency disorder (principal); R11.2 Nausea with vomiting, unspecified; M62.838 Other muscle spasm; R07.9 Chest pain, unspecified; R06.02 Shortness of breath; M54.9 Dorsalgia, unspecified
CPT/HCPCS: 36415; 70450; 71046; 80048; 82306; 82607; 83735; 84443; 84484; 85025; 93005; 93010; 99284

== ENCOUNTER → 2023-11-07 07:50 | Outpatient (CLI) | payer OTHER, SELFPAY ==
--- NOTE | 2023-11-07 | DI.RAD.S_ITS ---
PROCEDURE: FL UPPER GI W AIR INDICATIONS: GERD COMPARISON: None. FINDINGS: KUB: Preprocedural fountain supervisor film demonstrates a normal bowel gas pattern. No suspicious abdominal calcifications. Visualized solid organ contours appear normal. Bony structures appear unremarkable. Esophagus: Esophageal mucosa is normal on air-contrast views. On single-contrast views, there is normal esophageal peristalsis. No strictures, extrinsic mass effects, or diverticula. No hiatal hernia or elicited gastroesophageal reflux. There is normal transit of a calibrated barium tablet through the esophagus. Stomach: The stomach is normally distensible, with normal rugal fold thickness. No mucosal masses or ulcers. Pylorus and duodenal bulb appear normal in morphology. Duodenal folds are normal in thickness as well. Post cholecystectomy. IMPRESSION: Normal esophageal motility. No stricture. No gastroesophageal reflux elicited. Dictated by: Aryan Gage M.D. on 11/07/2023 at 13:18 Approved by: Aryan Gage M.D. on 11/07/2023 at 13:19
== END ==
PROVIDERS: Family Provider Physician Assistant Medical; PCP Physician Assistant Medical; Referring Provider Internal Medicine Gastroenterology; Visit Provider Internal Medicine Gastroenterology
DX: K21.9 Gastro-esophageal reflux disease without esophagitis (principal); R00.2 Palpitations
CPT/HCPCS: 74246; 93246

== ENCOUNTER → 2023-11-07 08:45 | Outpatient (CLI) | payer OTHER, SELFPAY | PROVIDERS: Family Provider Physician Assistant Medical; PCP Physician Assistant Medical; Referring Provider Physician Assistant Medical; Visit Provider Physician Assistant Medical | DX: R00.2 Palpitations (principal) | CPT/HCPCS: 93246 ==

== ENCOUNTER → 2024-08-27 06:51 | Outpatient (CLI) | payer OTHER, SELFPAY ==
--- NOTE | 2024-08-27 06:52 | DI.US.S_ITS ---
PROCEDURE: US PELVIC COMPLETE INDICATIONS: ABNORMAL UTERINE AND VAGINAL BLEEDING TECHNIQUE: Real-time scanning was performed of the pelvic organs, with image documentation. Additional endovaginal scanning was necessary due to incomplete visualization of the adnexal and endometrial structures by transabdominal scanning. COMPARISON: [facility], CT, ABDOMEN/PELVIS WITH CONTRAST, 05/07/2017, 8:16. FINDINGS: Limited exam due to body habitus Uterus: Uterus is anteverted and normal in size at 9.5 x 3.2 x 3.8 cm. The myometrium is homogeneous. The endometrium measures 10 mm combined thickness. Ovaries: The ovaries are not confidently identified on transabdominal or transvaginal scanning. No abnormal adnexal masses are identified. Other: No pathologic free abdominal or pelvic fluid. IMPRESSION: Suboptimal visualization of the ovaries. Otherwise, no sonographic abnormality of the uterus. We strive to produce accurate, complete, and clear reports of imaging services. To assist us in improving patient care, this report was composed using standard report templates and voice recognition software. Therefore, it may contain abnormal punctuation, insertions and/or omissions. Occasional wrong-word or sound-alike substitutions may occur. Though we review the report and make efforts to correct it, we do recommend that the report be read carefully in proper context to recognize any text inaccuracies. Dictated by: Rolando Muñoz M.D. on 08/27/2024 at 10:01 Approved by: Rolando Muñoz M.D. on 08/27/2024 at 10:06
== END ==
PROVIDERS: Family Provider Physician Assistant Medical; PCP Physician Assistant Medical
DX: N93.8 Other specified abnormal uterine and vaginal bleeding (principal); N92.6 Irregular menstruation, unspecified
CPT/HCPCS: 76830; 76856

== ENCOUNTER → 2024-09-10 15:12 | Outpatient (CLI) | payer OTHER, SELFPAY | PROVIDERS: Family Provider Physician Assistant Medical; PCP Physician Assistant Medical; Referring Provider Internal Medicine; Visit Provider Internal Medicine | DX: Z23 Encounter for immunization (principal) | CPT/HCPCS: 90471; 90656 ==

== ENCOUNTER → 2025-01-10 11:07 | Outpatient (CLI) | payer OTHER, SELFPAY ==
[2025-01-10 11:56] LABS: Influenza A - CEPHEID Flu A NEGATIVE (NEGATIVE); Influenza B - CEPHEID Flu B NEGATIVE (NEGATIVE); Respiratory Syncytial Virus Negative (Negative)
[2025-01-10 12:07] LABS: COVID-19 CEPHEID 4-PLEX PCR Negative (Negative)
== END ==
PROVIDERS: Family Provider Physician Assistant Medical; PCP Physician Assistant Medical; Visit Provider Physician Assistant Surgical
DX: J02.9 Acute pharyngitis, unspecified (principal); R05.1 Acute cough
CPT/HCPCS: 0241U; 87070; 87077; 87147